=== PATIENT | male | born 1940 | race Two or more races ===

== ENCOUNTER → 2025-03-04 | Outpatient (CLI) | payer MEDICARE, SELFPAY ==
[2025-03-04 08:46] LABS: Basophils % (Auto) 1 % (0-2.5); Eosinophils # (Auto) 0.2 Thou/mm3 (0.0-0.5); Eosinophils % (Auto) 4 % (0-10); Hematocrit 39.4 % (41.0-53.0); Hemoglobin 12.4 g/dL (13.5-16.0); Immature Granulocytes % (Auto) 0 % (0-0); Immature Granulocytes Auto 0.02 Thou/mm3 (0.00-0.00); Lymphocytes # (Auto) 1.1 Thou/mm3 (1.0-4.8); Lymphocytes % (Auto) 20 % (10-50); Mean Corpuscular HGB Conc 31.5 g/dl (31.0-37.0); Mean Corpuscular Hemoglobin 27.6 pg (25.0-35.0); Mean Corpuscular Volume 88 fL (80-100); Monocytes # (Auto) 0.7 Thou/mm3 (0.0-0.8); Monocytes % (Auto) 13 % (0-12); Neutrophils # (Auto) 3.5 Thou/mm3 (1.8-7.7); Neutrophils % (Auto) 62 % (37-80); Nucleated Red Blood Cell % 0 /100 WBC (0); Platelet Count 198 Thou/mm3 (140-440); RDW Standard Deviation 49.1 fL (35.1-43.9); Red Blood Count 4.49 Miln/mm3 (4.50-5.90); White Blood Count 5.5 Thou/mm3 (3.8-10.6)
[2025-03-04 09:07] LABS: Alanine Aminotransferase 29 U/L (10-49); Alkaline Phosphatase 83 U/L (46-116); Anion Gap 8 (7-16); Aspartate Amino Transferase 25 U/L (0-34); BUN/Creatinine Ratio 14 Ratio (12-20); Bilirubin,Total 0.4 mg/dL (0.3-1.2); Blood Urea Nitrogen 14 mg/dL (9-23); Calcium 8.9 mg/dL (8.3-10.6); Calcium (Corrected) 8.9 mg/dL (8.5-10.1); Carbon Dioxide 27.2 mMol/L (20.0-31.0); Cardiac Risk Estimate 2.1 RATIO (4.0-6.7); Chloride 111 mMol/L (98-107); Cholesterol 89 mg/dL (132-200); Free T4 (Free Thyroxine) 0.91 ng/dL (0.89-1.76); Glucose 92 mg/dL (74-106); HDL Cholesterol 42 mg/dL (40-60); LDL Cholesterol,Calculated 33 mg/dL (0-130); Osmolality,Calculated 291 (275-295); Potassium 3.9 mMol/L (3.4-5.1); Sodium 146 mMol/L (136-145); Thyroid Stimulating Hormone 2.71 uIU/mL (0.55-4.78); Triglycerides 69 mg/dL (30-150); eGFR > 60 See Note
[2025-03-04 09:16] LABS: Glucose Estimated Average 117 mg/dL (80-131); Hemoglobin A1C 5.7 % Hgb (4.8-6.0)
== END | disposition home or self-care (01) ==
PROVIDERS: PCP Internal Medicine; Referring Provider Internal Medicine; Visit Provider Internal Medicine
DX: Z00.00 Encounter for general adult medical examination without abnormal findings (principal); E55.9 Vitamin D deficiency, unspecified
CPT/HCPCS: 36415; 80053; 80061; 82306; 83036; 84439; 84443; 85025

== ENCOUNTER 2025-03-23 12:32 | Emergency (ER) | payer OTHER, SELFPAY ==
[2025-03-23 12:48] VITALS: BP 151/86; PULSE 99; RESP 20; TEMP 37.9; O2SAT 95
[2025-03-23 13:00] VITALS: PULSE 90; O2SAT 100; BMI 25.8
--- NOTE | 2025-03-23 13:07 | XR_ITS ---
Examination: Duplex scan of the lower extremity, unilateral left complete Date and time of exam: March 23, 2025 at 1333 hours INDICATIONS: Left leg pain and cramping and edema today Technique: Duplex scan of the extremity veins using B-mode/grayscale imaging and Doppler spectral analysis and color flow Attention is directed to internal echogenicity, compression and augmentation involving these veins, color flow assessment, spectral analysis Findings: Major deep venous structures in the extremity demonstrate normal course and caliber. There is no evidence of deep vein thrombosis. Normal color flow and spectral analysis 5 cm popliteal cyst seen with internal region of the knee Impression: Negative for DVT..
--- NOTE | 2025-03-23 13:17 | PD.EDLOWEX ---
Lower Extremity Injury RME/HPI General Chief Complaint: Extremity Problem,Nontraumatic Stated Complaint: LEFT KNEE PAIN Time Seen by Provider: 03/23/25 12:50 Arrival date/time: 03/23/25 12:32 Limitations: no limitations RME / HPI RME / HPI Narrative: 6y year old male with history of dementia and sundowner's syndrome presented to the ER BIBA accompanied by spouse with a chief complaint of left knee pain and swelling. Per spuse, patient fell asleep in recliner and refused to get up. Patient slept there all night and was unable to ambulate in the morning. Per spouse, the neighbor tried to help get patient up out of the recliner but was unable. Patient is unable to bend left knee due to pain and swelling. Related Data Home Medications ?Medication ?Instructions ?Recorded ?Confirmed fluticasone propionate 50 2 spray intranasal QDAY 03/17/23 03/23/25 mcg/actuation nasal spray,suspension memantine 10 mg tablet 10 mg PO QPM 03/17/23 03/23/25 quetiapine 25 mg tablet mg 03/23/25 rivastigmine 9.5 mg/24 hour See Rx Instructions topical 03/23/25 03/23/25 transdermal patch (Exelon Patch) .COMPLEX rosuvastatin 10 mg tablet mg 03/23/25 Allergies Allergy/AdvReac Type Severity Reaction Status Date / Time No Known Allergies Allergy Verified 03/23/25 13:11 Review of Systems Review of Systems Systems Reviewed: All systems reviewed, normal except as documented ED Exam General Limitations: Present no limitations General appearance: Present alert and in no apparent distress Head Head exam: Present atraumatic Eye Eye exam: Present normal appearance, PERRL and EOMI ENT ENT exam: Present normal exam, normal oropharynx and mucous membranes moist Neck Neck exam: Present normal inspection, full ROM and trachea midline Chest Chest inspection: Present normal inspection and symmetric chest wall rise Respiratory Respiratory exam: Present normal lung sounds bilaterally Cardiovascular Cardiovascular exam: Present regular rate, normal rhythm and normal heart sounds Abdominal Exam Abdominal exam: Present soft and normal bowel sounds Extremities Exam Extremities exam: Present other (pain, spasm, and tenderness along semimembranosus muscle ) Back Exam Back exam: Present normal inspection and full ROM Neurological Exam Neurological exam: Present alert, oriented X3 and CN II-XII intact Psychiatric Psychiatric exam: Present normal affect and normal mood Skin Skin exam: Present warm, dry, intact and normal color Course Quality Measures none Orders Category Date Time Status Home Health Referral Routine Cons 03/23/25 16:02 Active US venous doppler LE LT Stat Exams 03/23/25 13:07 Completed CBC Stat Lab 03/23/25 14:02 Completed CMP [Comprehensive Metabolic Panel] Stat Lab 03/23/25 14:02 Completed Magnesium Stat Lab 03/23/25 14:02 Completed LORazepam [Ativan Inj] Med 03/23/25 13:07 Discontinued 1 mg IVP X1 ONE Vital Signs Vital signs: Vital Signs Temperature 100.2 F 03/23/25 12:48 Pulse Rate 99 03/23/25 12:48 Respiratory Rate 20 03/23/25 12:48 Blood Pressure 151/86 H 03/23/25 12:48 Pulse Oximetry (%) 95 03/23/25 12:48 Oxygen Delivery Method Room Air 03/23/25 12:48 Extremity Injury, Lower MDM Narrative MDM Narrative:: IAnna am scribing for and in the presence of Dr. Allen. Patient data External records reviewed:: [facility] previous records and EMS form Clinical information provided by:: patient and spouse () Social determinants that could affect healthcare access:: mental health (dementia, sundowner's syndrome) Patient has the following chronic illnesses:: dementia, sundowning syndrome, poor balance due to dementia How is presenting disease/condition affected by chronic disease/condition?: exacerbated by Evaluation data The following diagnostics were reviewed and interpreted by me:: lab results and radiology exam(s) Lab and/or radiology exams considered but not ordered:: none Interpretation Summary: Labs, specifically electrolytes are normal. No DVT. His requested HHS, which was submitted. Medications / Prescriptions Medications or Prescriptions considered but not ordered:: none Medication administrations:: Medication Administration History Discontinued Medications Lorazepam (Lorazepam 2 Mg/Ml Vial) 1 mg IVP X1 ONE Stop: 03/23/25 13:08 Last Admin: 03/23/25 14:52 Dose: 1 mg Documented By: BRI see above. Consultations Consultation(s) initiated? (list below): No Diagnosis Extremity Injury, Lower Differential Diagnosis: acute internal derangement of knee and other (muscle strain, muscle tear) Most likely diagnosis given after review of the tests above:: Spasm thigh muscle left, which improved with Tx. Admission Indicated Admission indicated?: not indicated Admission Request Was there a request for admission?: No Disposition Plan Disposition Plan: Discharge Discharge Attestation Discharge Attestation: The patient and all family members were given an opportunity to ask questions and understood the discharge instructions. Discharge instructions specifically effects, indications for sooner follow up or return to the emergency department, and the expected course of current diagnosis. Patient condition: Stable Discharge Plan Plan Patient Disposition: HOME (Self Care) Patient condition on transfer: Stable Prescriptions/Referrals Prescriptions/Med Rec: No Action fluticasone propionate 50 mcg/actuation [place],Suspension 2 spray INTRANASAL QDAY Rx Instructions: administer into each nostril memantine 10 mg Tablet 10 mg PO QPM quetiapine 25 mg tablet Patient Comments: TOME 1/2 - 1 TABLETA POR V A ORAL CADA NOCHE CUANDO SEA NECESARIO rosuvastatin 10 mg tablet Patient Comments: TOME CAREN TABLETA TODOS LOS D FOR 90 DAYS rivastigmine [Exelon Patch] 9.5 mg/24 hour patch 24 hour See Rx Instructions topical .COMPLEX Rx Instructions: topically; Referrals: No Primary/Family,Physician [Primary Care Provider] - In 1 week Problem List Clinical Impression: Muscle spasm Patient/Caregiver Discharge Instructions Print Language: Kyrgyz Stand Alone Forms: [employer] Award Info., Patient Portal Info Letter
[2025-03-23 14:20] LABS: Basophils % (Auto) 0 % (0-2.5); Eosinophils % (Auto) 0 % (0-10); Hematocrit 40.3 % (41.0-53.0); Hemoglobin 12.9 g/dL (13.5-16.0); Immature Granulocytes % (Auto) 0 % (0-0); Immature Granulocytes Auto 0.04 Thou/mm3 (0.00-0.00); Lymphocytes # (Auto) 0.5 Thou/mm3 (1.0-4.8); Lymphocytes % (Auto) 4 % (10-50); Mean Corpuscular Volume 87 fL (80-100); Monocytes % (Auto) 9 % (0-12); Neutrophils # (Auto) 8.9 Thou/mm3 (1.8-7.7); Neutrophils % (Auto) 86 % (37-80); Nucleated Red Blood Cell % 0 /100 WBC (0); Platelet Count 149 Thou/mm3 (140-440); RDW Standard Deviation 48.2 fL (35.1-43.9); Red Blood Count 4.61 Miln/mm3 (4.50-5.90); White Blood Count 10.4 Thou/mm3 (3.8-10.6)
[2025-03-23 14:37] LABS: Alanine Aminotransferase 17 U/L (10-49); Albumin, Serum 4.4 gm/dL (3.4-4.8); Albumin/Globulin Ratio 1.8 (1.2-2.2); Alkaline Phosphatase 82 U/L (46-116); Anion Gap 11 (7-16); Aspartate Amino Transferase 19 U/L (0-34); BUN/Creatinine Ratio 13 Ratio (12-20); Bilirubin,Total 0.8 mg/dL (0.3-1.2); Blood Urea Nitrogen 13 mg/dL (9-23); Calcium 8.9 mg/dL (8.3-10.6); Calcium (Corrected) 8.9 mg/dL (8.5-10.1); Carbon Dioxide 25.4 mMol/L (20.0-31.0); Chloride 107 mMol/L (98-107); Estimated Creatinine Clearance 48.7 mL/min (>60); Globulin 2.4 gm/dL (2.3-3.5); Glucose 114 mg/dL (74-106); Magnesium 1.8 mg/dL (1.6-2.6); Osmolality,Calculated 286 (275-295); Potassium 3.6 mMol/L (3.4-5.1); Sodium 143 mMol/L (136-145); Total Protein 6.8 gm/dL (5.7-8.2); eGFR > 60 See Note
[2025-03-23] MEDS: LORazepam 2 MG/ML VIAL 1 MG IVP (14:52)
[2025-03-23 14:54] VITALS: BP 130/65; PULSE 83; RESP 23; TEMP 37.1; O2SAT 100
[2025-03-23 15:59] VITALS: BP 142/50; PULSE 84; RESP 25; TEMP 37.1; O2SAT 98
--- NOTE | 2025-03-23 16:02 | PC.CC ---
Line Driver communicated with Pt in regard to Home Health request. reported she is unable to attend to currently due to unable to move own leg. Attending doctor was notified and Home Health orders will be submitted.
[2025-03-23 17:42] VITALS: BP 142/50; PULSE 83; RESP 17; TEMP 37.1; O2SAT 94
--- NOTE | 2025-03-24 08:09 | PC.CM ---
pt has [employer] insurance. HH referral sent on [facility]. Awaiting responses. Pending start of care date.
--- NOTE | 2025-03-27 07:23 | PC.CC ---
Addendum entered by Noemy Zepeda RN 03/27/25 08:47: Pt accepted and booked with [facility], SOC will be 03/29 Original Note: [facility] declined referrals sent to other home health agencies
== END 2025-03-23 18:20 | disposition home or self-care (01) ==
PROVIDERS: Emergency Provider Emergency Medicine
DX: M62.838 Other muscle spasm (principal); M79.605 Pain in left leg; R60.0 Localized edema
CPT/HCPCS: 36415; 80053; 83735; 85025; 93971; 99284; J2060

== ENCOUNTER 2025-09-13 11:30 | Inpatient (IN) | payer OTHER, MEDICAID, MEDICARE, SELFPAY ==
[2025-09-13] VITALS (10 sets, daily range): BP systolic 125–138; BP diastolic 66–91; PULSE 73–86; RESP 14–20; TEMP 36.7–38.8; O2SAT 94–99
--- NOTE | 2025-09-13 12:03 | PC.NURSE ---
Pt BIBA from home. Son reports that pt was attempting to go from outside to inside from backyard, stepped up but fell backwards and landed on left hip and knee, but did not hit his back. Pt typically does not use an assistive device for walking. Pt has had dementia for about 5 years, pt has a hard time finding words but communicates with gestures. Feeds himself if food is prepared for him. No previous history of falls.
--- NOTE | 2025-09-13 12:17 | PD.EDFALL ---
ED Fall Injury RME/HPI General Chief Complaint: Fall Stated Complaint: FALL Time Seen by Provider: 09/13/25 12:22 Arrival date/time: 09/13/25 11:30 Limitations: no limitations RME / HPI RME / HPI Narrative: 85 year old male with history of dementia presents to the ED BIBA from home for evaluation following a ground level mechanical fall today. Son states the patient misstepped as he was about to walk up the stairs and fell backwards, landing on his left hip. Reports the patient was complaining of severe pain to the left hip and knee. No head injury or LOC. No other injuries or complaints reported. Related Data Home Medications ?Medication ?Instructions ?Recorded ?Confirmed fluticasone propionate 50 2 spray intranasal QDAY 03/17/23 03/23/25 mcg/actuation nasal spray,suspension memantine 10 mg tablet 10 mg PO BID 03/17/23 09/13/25 quetiapine 25 mg tablet 25 mg PO BID 03/23/25 09/13/25 rivastigmine 9.5 mg/24 hour See Rx Instructions topical 03/23/25 09/13/25 transdermal patch (Exelon Patch) .COMPLEX rosuvastatin 10 mg tablet 10 mg PO DAILY 03/23/25 09/13/25 Allergies Allergy/AdvReac Type Severity Reaction Status Date / Time No Known Allergies Allergy Verified 03/23/25 13:11 Review of Systems Review of Systems Systems Reviewed: All systems reviewed, normal except as documented Past Medical History Past Medical History NEUROLOGIC: Positive Dementia and Alzheimer's Disease CARDIAC: Positive Cardiac Disorders, Coronary Artery Disease, Atherosclerotic Heart Disease, Hypercholesterolemia and Hypertension GASTROINTESTINAL: Positive Gastrointestinal Bleed, Ulcer and Gastroesophageal Reflux Disease GENITOURINARY: Positive Genitourinary Disorders and Benign Prostatic Hyperplasia MUSCULOSKELETAL: Positive Arthritis ENT: Positive Cataracts OTHER HISTORY: Positive Hospitalization and Blood Transfusions Family History FAMILY HISTORY: Positive Family Cancer Surgical History SURGICAL: Positive Cardiac Surgery, Coronary Stent and Cardiac Catheterization Social History SMOKING STATUS: Never smoker ED Exam General Limitations: Present no limitations General appearance: Present alert and in no apparent distress Head Head exam: Present atraumatic, normocephalic and normal inspection Eye Eye exam: Present normal appearance, PERRL and EOMI ENT ENT exam: Present normal exam, normal oropharynx and mucous membranes moist Neck Neck exam: Present normal inspection, full ROM and trachea midline Chest Chest inspection: Present normal inspection and symmetric chest wall rise Respiratory Respiratory exam: Present normal lung sounds bilaterally Cardiovascular Cardiovascular exam: Present regular rate, normal rhythm and normal heart sounds Abdominal Exam Abdominal exam: Present soft and normal bowel sounds Extremities Exam Extremities exam: Present other (Patient grimacing with movement of the left lower extremity, there is an abrasion to the left knee inferior to the patella, no edema, no deformity ) Back Exam Back exam: Present normal inspection and full ROM Neurological Exam Neurological exam: Present alert and CN II-XII intact Psychiatric Psychiatric exam: Present normal affect and normal mood Skin Skin exam: Present warm, dry, intact and normal color Course Quality Measures none Orders Category Date Time Status COVID-19 Screening Questionnaire NOW Care 09/13/25 17:23 Active Manager Massage Department NOW Care 09/13/25 14:45 Active Continuous Pulse Oximetry NOW Care 09/13/25 14:45 Active Decision to Admit X1 Care 09/13/25 17:23 Active EKG (ED ONLY) *Do not use* NOW Care 09/13/25 14:45 Completed Insert IV NOW Care 09/13/25 14:45 Active Consult to Orthopedic Stat Cons 09/13/25 17:23 Ordered Referral - Gas Turbine Assembler Stat Cons 09/13/25 14:[address] pelvis wo con Stat Exams 09/13/25 12:22 Completed EKG (ED Only) Stat Exams 09/13/25 14:45 Draft XR chest 1V portable Stat Exams 09/13/25 14:45 Completed XR knee LT 3V Stat Exams 09/13/25 12:22 Completed CBC Stat Lab 09/13/25 15:23 Completed Comprehensive Metabolic Panel Stat Lab 09/13/25 15:23 Completed Partial Thromboplastin Time Stat Lab 09/13/25 15:23 Completed Prothrombin Time with INR Stat Lab 09/13/25 15:23 Completed Troponin I Stat Lab 09/13/25 15:23 Completed Urinalysis Stat Lab 09/13/25 14:45 Ordered Ketorolac Inj [Toradol Inj] Med 09/13/25 12:25 Discontinued 15 mg IM X1 ONE Sodium Chloride 0.9% 1000 ml [Ns] 1,000 ml Med 09/13/25 14:45 Active IV 100 mls/hr Vital Signs Vital signs: Vital Signs Temperature 98.4 F 09/13/25 11:34 Pulse Rate 76 09/13/25 11:34 Respiratory Rate 18 09/13/25 11:34 Blood Pressure 131/74 H 09/13/25 11:34 Pulse Oximetry (%) 96 09/13/25 11:34 Oxygen Delivery Method Room Air 09/13/25 11:34 Pulse ox is 96% on room air which is adequate. Fall MDM Narrative MDM Narrative:: Flaca Martin, am scribing for and in the presence of Dr. Hdz. Patient data External records reviewed:: [facility] previous records and EMS form Clinical information provided by:: patient, EMS and family Social determinants that could affect healthcare access:: none Patient has the following chronic illnesses:: Dementia How is presenting disease/condition affected by chronic disease/condition?: uneffected by Evaluation data The following diagnostics were reviewed and interpreted by me:: radiology exam(s) Lab and/or radiology exams considered but not ordered:: None Interpretation Summary: Ordering Physician: Jevon Hdz MD Date of Service: 09/13/25 Procedure(s): XR knee LT 3V Accession Number(s): [id number] cc: Harish Taylor MD; Jevon Hdz MD; Deshawn Fowler MD~ Examination: Knee, left, 3 views Technique: Knee AP, lateral, oblique 3 views Date and time of exam: September 13, 2025 1418 hours INDICATIONS: Ground-level fall today with injury of the knee, knee pain. FINDINGS: Severe osteopenia. Advanced left knee tricompartment osteoarthritis. No acute fracture IMPRESSION: No acute fracture Dictated By: Deshawn Fowler MD Signed By: <Electronically signed by Deshawn Fowler MD in OV> 09/13/25 1440 Ordering Physician: Jevon Hdz MD Date of Service: 09/13/25 Procedure(s): CT pelvis wo con Accession Number(s): [id number] cc: Harish Taylor MD; Jevon Hdz MD; Deshawn Fowler MD~ Examination: CT pelvis without intravenous contrast. CT left hip without contrast 2-D sagittal and coronal reconstructions. Date and time of exam: September 13, 2025, 1301 hours INDICATIONS: Patient fell today with injury to the left hip, left hip pain CTDI: vol (mGy) : 8.40 DLP: (mGycm) : 284 Technique: Multiple 3 mm axial sections of the pelvis left hip have been obtained with the 64 slice high resolution scanner. 2-D sagittal and coronal reconstructions. Low dose protocols were performed. One or more of the following dose reduction techniques were used; automated exposure control, adjustment of the mA and/or KV according to patient size, use of iterative reconstruction technique. Findings: Colonic diverticulosis Urinary bladder intact Prostatomegaly, transverse dimension 4.9 cm No pelvic hematoma Fat-containing left inguinal hernia Severe osteopenia Sacral segments iliac bones intact Acute left hip fracture, low femoral neck, probably intertrochanteric, mild angulation at the fracture site IMPRESSION: Acute left hip fracture, left femoral neck partly intertrochanteric Dictated By: Deshawn Fowler MD Signed By: <Electronically signed by Deshawn Fowler MD in OV> 09/13/25 1408 Ordering Physician: Jevon Hdz MD Date of Service: 09/13/25 Procedure(s): XR chest 1V portable Accession Number(s): [id number] cc: Harish Taylor MD; Jevon Hdz MD; Deshawn Fowler MD~ EXAMINATION: AP chest single view TECHNIQUE: AP portable upright chest single view Date and time: September 13, 2025, 1456 hours, comparison March 18, 2023 INDICATIONS: Preop, hip fracture, also fever cough today. FINDINGS: Mild enlargement left ventricle Early pneumonia left base retrocardiac Right lung clear Severe osteopenia IMPRESSION: Early pneumonia left base Dictated By: Deshawn Fowler MD Signed By: <Electronically signed by Deshawn Fowler MD in OV> 09/13/25 1521 Medications / Prescriptions Medications or Prescriptions considered but not ordered:: None Medication administrations:: Medication Administration History Sodium Chloride (Ns) 1,000 mls @ 100 mls/hr IV .Q10H ONE Stop: 09/14/25 00:44 Last Admin: 09/13/25 15:50 Dose: 100 mls/hr Documented By: CS Discontinued Medications Ketorolac Tromethamine (Ketorolac Inj 30 Mg/Ml Vial) 15 mg IM X1 ONE Stop: 09/13/25 12:26 Last Admin: 09/13/25 12:38 Dose: 15 mg Documented By: BY See above Consultations Consultation(s) initiated? (list below): Yes Consultation #1 (Physician, Specialty, Details): I spoke with ortho Dr. Pérez. Discussed patients PMHx, HPI, ED course, exam findings, labs, and radiology results. He agrees to consult. Time: 17:13 Consultation #2 (Physician, Specialty, Details): I spoke with hospitalist team B for admission. Diagnosis Fall Differential Diagnosis: syncope, compression fracture and other (hip fracture, patellar fracture ) Most likely diagnosis given after review of the tests above:: Left hip fracture status post fall dementia Admission Indicated Admission indicated?: indicated Admission Request Was there a request for admission?: Yes Admission Attestation Admission request attestation: Discussed case with [] from Hospitalist service regarding admission. Discussed patients ED course, exam findings, labs, and radiology results. The Hospitalist [agrees,declines] to accept the patient for admission. Disposition Plan Disposition Plan: Admit Discharge Plan Plan Patient Disposition: Admit Acute Care w/in Hospital Prescriptions/Referrals Prescriptions/Med Rec: No Action fluticasone propionate 50 mcg/actuation [place],Suspension 2 spray INTRANASAL QDAY Rx Instructions: administer into each nostril memantine 10 mg Tablet 10 mg PO BID quetiapine 25 mg tablet 25 mg PO BID Patient Comments: TOME 1/2 - 1 TABLETA POR V A ORAL CADA NOCHE CUANDO SEA NECESARIO Rx Instructions: Take 1 tablet by mouth at 3pm and one at night as needed rosuvastatin 10 mg tablet 10 mg PO DAILY Patient Comments: JAQUELIN FABIAN MONICO Villagran FOR 90 DAYS rivastigmine [Exelon Patch] 9.5 mg/24 hour patch 24 hour See Rx Instructions topical .COMPLEX Rx Instructions: topically; Referrals: Harish Taylor MD [Primary Care Provider, Internal Medicine] - In 1 week Problem List Clinical Impression: Fracture of left hip, Status post fall, Dementia Patient/Caregiver Discharge Instructions Print Language: Somali Stand Alone Forms: [employer] Award Info., Patient Portal Info Letter
--- NOTE | 2025-09-13 12:22 | XR_ITS ---
Examination: Knee, left, 3 views Technique: Knee AP, lateral, oblique 3 views Date and time of exam: September 13, 2025 1418 hours INDICATIONS: Ground-level fall today with injury of the knee, knee pain. FINDINGS: Severe osteopenia. Advanced left knee tricompartment osteoarthritis. No acute fracture IMPRESSION: No acute fracture
--- NOTE | 2025-09-13 12:22 | XR_ITS ---
Examination: CT pelvis without intravenous contrast. CT left hip without contrast 2-D sagittal and coronal reconstructions. Date and time of exam: September 13, 2025, 1301 hours INDICATIONS: Patient fell today with injury to the left hip, left hip pain CTDI: vol (mGy) : 8.40 DLP: (mGycm) : 284 Technique: Multiple 3 mm axial sections of the pelvis left hip have been obtained with the 64 slice high resolution scanner. 2-D sagittal and coronal reconstructions. Low dose protocols were performed. One or more of the following dose reduction techniques were used; automated exposure control, adjustment of the mA and/or KV according to patient size, use of iterative reconstruction technique. Findings: Colonic diverticulosis Urinary bladder intact Prostatomegaly, transverse dimension 4.9 cm No pelvic hematoma Fat-containing left inguinal hernia Severe osteopenia Sacral segments iliac bones intact Acute left hip fracture, low femoral neck, probably intertrochanteric, mild angulation at the fracture site IMPRESSION: Acute left hip fracture, left femoral neck partly intertrochanteric
[2025-09-13] MEDS: KETOROLAC INJ 30 MG/ML VIAL 15 MG IM (12:38)
--- NOTE | 2025-09-13 14:45 | EKG_ITS ---
[facility] Test Date: 2025-09-13 Pat Name: ZELDA HUGGINS Department: Room: - Gender: Male Regional Transfer Liaison: : 1940 Requested By: Jevon Strange Order Number: [id number] Reading MD: Jevon Strange Measurements Intervals Isabella Rate: 76 P: 64 PA: 152 QRS: 55 QRSD: 98 T: 52 QT: 364 QTc: 411 Interpretive Statements SINUS RHYTHM WITH OCCASIONAL SUPRAVENTRICULAR PREMATURE COMPLEXES Compared to ECG 03/15/2023 12:04:00 No significant changes /store/S0/[id number].pdf
--- NOTE | 2025-09-13 14:45 | XR_ITS ---
EXAMINATION: AP chest single view TECHNIQUE: AP portable upright chest single view Date and time: September 13, 2025, 1456 hours, comparison March 18, 2023 INDICATIONS: Preop, hip fracture, also fever cough today. FINDINGS: Mild enlargement left ventricle Early pneumonia left base retrocardiac Right lung clear Severe osteopenia IMPRESSION: Early pneumonia left base
[2025-09-13 15:41] LABS: Basophils # (Auto) 0.0 Thou/mm3 (0.0-0.2); Basophils % (Auto) 0 % (0-2.5); Eosinophils # (Auto) 0.0 Thou/mm3 (0.0-0.5); Eosinophils % (Auto) 0 % (0-10); Hematocrit 40.2 % (41.0-53.0); Hemoglobin 13.4 g/dL (13.5-16.0); Immature Granulocytes Auto 0.05 Thou/mm3 (0.00-0.00); Lymphocytes # (Auto) 0.6 Thou/mm3 (1.0-4.8); Lymphocytes % (Auto) 6 % (10-50); Mean Corpuscular HGB Conc 33.3 g/dl (31.0-37.0); Mean Corpuscular Hemoglobin 28.6 pg (25.0-35.0); Mean Corpuscular Volume 86 fL (80-100); Monocytes # (Auto) 1.0 Thou/mm3 (0.0-0.8); Monocytes % (Auto) 10 % (0-12); Neutrophils # (Auto) 8.0 Thou/mm3 (1.8-7.7); Neutrophils % (Auto) 83 % (37-80); Nucleated Red Blood Cell # 0.00 Thou/mm3 (0.00-0.00); Nucleated Red Blood Cell % 0 /100 WBC (0); Platelet Count 146 Thou/mm3 (140-440); RDW Standard Deviation 49.0 fL (35.1-43.9); Red Blood Count 4.68 Miln/mm3 (4.50-5.90); White Blood Count 9.6 Thou/mm3 (3.8-10.6)
[2025-09-13] MEDS: SODIUM CHLORIDE 0.9% 1000 ML 1,000 ML 100 ML IV (15:50)
[2025-09-13 16:03] LABS: INR 1.1 (0.9-1.3); Partial Thromboplastin Time 30.1 Seconds (22.0-36.0); Prothrombin Time 11.8 Seconds (9.0-12.2)
[2025-09-13 16:11] LABS: Alanine Aminotransferase 17 U/L (10-49); Albumin, Serum 4.6 gm/dL (3.4-4.8); Albumin/Globulin Ratio 2.3 (1.2-2.2); Alkaline Phosphatase 85 U/L (46-116); Anion Gap 12 (7-16); Aspartate Amino Transferase 29 U/L (0-34); BUN/Creatinine Ratio 12 Ratio (12-20); Bilirubin,Total 0.8 mg/dL (0.3-1.2); Blood Urea Nitrogen 14 mg/dL (9-23); Calcium 9.1 mg/dL (8.3-10.6); Calcium (Corrected) 9.1 mg/dL (8.5-10.1); Carbon Dioxide 25.9 mMol/L (20.0-31.0); Chloride 104 mMol/L (98-107); Creatinine (Component) 1.2 mg/dL (0.6-1.3); Globulin 2.0 gm/dL (2.3-3.5); Glucose 108 mg/dL (74-106); Osmolality,Calculated 284 (275-295); Potassium 3.8 mMol/L (3.4-5.1); Sodium 142 mMol/L (136-145); Total Protein 6.6 gm/dL (5.7-8.2); Troponin I < 0.020 ng/mL (0.0-0.045); eGFR 59 See Note
--- NOTE | 2025-09-13 17:53 | ECHO_ITS ---
Transthoracic Echo Report Ht (in): 66 Wt (lb): 180 Exam Location: [facility] Status: Emergency Motor Vehicle Licence Examiner: Clay Girard Indications: Procedure Performed: BP: 93 / 66 HR: 71 MEASUREMENTS (Male / Female) Normal Values 2D ECHO LV Diastolic Diameter PLAX 4.2 cm 4.2 - 5.9 / 3.9 - 5.3 cm LV Systolic Diameter PLAX 2.8 cm IVS Diastolic Thickness 0.8 cm 0.6 - 1.0 / 0.6 - 0.9 cm LVPW Diastolic Thickness 1.1 cm 0.6 - 1.0 / 0.6 - 0.9 cm LV Relative Wall Thickness 0.5 LVOT Diameter 1.9 cm LA Volume Index 35.5 cm?/m? 16 - 28 cm?/m? Ascending Aorta Diameter 2.8 cm M-MODE AV Cusp Separation MM 1.1 cm DOPPLER AV Peak Velocity 191.0 cm/s AV Peak Gradient 14.6 mmHg AV Mean Gradient 7.0 mmHg AV Velocity Time Integral 37.6 cm LVOT Peak Velocity 128.0 cm/s LVOT Peak Gradient 6.6 mmHg LVOT Velocity Time Integral 29.4 cm LVOT Cardiac Index 3000.9 cm?/min?m? AV Area Cont Eq vti 2.2 cm? AV Area Cont Eq pk 1.9 cm? MV Area PHT 4.2 cm? Mitral E Point Velocity 55.8 cm/s Mitral A Point Velocity 90.7 cm/s Mitral E to A Ratio 0.6 TR Peak Velocity 167.3 cm/s TR Peak Gradient 11.2 mmHg PV Peak Velocity 102.0 cm/s PV Peak Gradient 4.2 mmHg FINDINGS Left Ventricle Hyperdynamic. Normal left ventricular size, wall thickness, systolic function with no obvious regional wall motion abnormalities. There is grade I diastolic dysfunction of the left ventricle (impaired relaxation pattern). . The ejection fraction is visually estimated at -55 %. Right Ventricle The right ventricle is normal in size and systolic function. Left Atrium The left atrial cavity size is moderately increased. Right Atrium The right atrium is normal by two-dimensional imaging, color flow and Doppler imaging with no structural abnormalities, no thrombus formation present. Atrial Septum The interatrial septum appears normal with no evidence of a shunt. Aorta The aorta is normal by two-dimensional, color flow and Doppler interrogation. Mitral Valve The mitral valve is normal by two-dimensional, color flow and Doppler interrogation. Trace to mild mitral regurgitation. Aortic Valve Mild thickening of the aortic valve leaflets. Aortic valve sclerosis without stenosis.trace to mild aortic valve regurgitation. Tricuspid Valve The tricuspid valve is normal by two-dimensional, color flow and Doppler interrogation. There is trace tricuspid valve regurgitation. Pulmonic Valve The pulmonic valve is not well visualized. Mild pulmonic valve regurgitation. Vessels The pulmonary artery appears normal. The inferior vena cava pulmonary and hepatic veins appear normal. Pericardium The pericardium is normal by two-dimensional imaging. There is no significant pericardial effusion. CONCLUSIONS Indication: Cardiac clearance Hyperdynamic.Normal left ventricular size and function. Approximate ejection fraction is 50-55%. Normal right ventricular size and function. Mildly dilatd LA Aortic valve sclerosis without stenosis Trace -mild mitral, aortic regurgitation and trace tricuspid regurgitation LOW CARDIAC RISK FOR SURGERY Savannah Martin (Electronically Signed) Final Date: 15 September 2025 15:52
--- NOTE | 2025-09-13 17:59 | ESHP_ITS ---
<Statement entered by Kathy Whaley MD - 09/16/25 15:52> I reviewed above note and agree with findings and plans. I have also personally examined the patient with medicine team and went over assessment and plan with medical team including administration internship and resident physician. Documentation for date of: 09/13/25 HPI History of Present Illness Chief complaint: Fall History of present illness: 85-year-old male with past medical history of CAD status post stent placement some 20 years ago on rosuvastatin, dementia on memantine, rivastigmine and Seroquel who presented to the ED on 06/13 after he had a witnessed fall. History taken largely from patient's son, and daughter who are bedside as the patient has dementia and is mostly nonverbal other than some monitoring of words. As per son who witnessed the fall, patient was standing and slowly tripped and fell on his left side without hitting his head. Patient's son attempted to catch him before he fell but was a little too late. Patient has history of CAD status post stent placement 20 years ago and has followed up with cardiology since then with last visit being about 2 weeks ago. As per family bedside patient is ambulatory at home, eats frequent meals but requires assistance with activities of daily living. Per family bedside, patient had a fever a couple nights ago and had recently started on Z-Negro from primary care. Patient's family denies any sick contacts but does state that the patient recently received the flu vaccine. Medical history: As stated above Surgical history: Stent placement as above Allergies: NKDA Home medications: As listed in chart Family history: Noncontributory Social history: Patient lives at home with , ambulates at home but requires assistance with ADLs, no alcohol, tobacco or illicit drug use ROS: Unable to assess as the patient is largely nonverbal In the ED, patient presented slightly hypertensive 131/74, heart rate of 76, respiratory rate 18, afebrile satting 96 on room air. Laboratory findings were largely unremarkable, Knee x-ray was negative for any acute fracture, pelvis CT did show an acute left hip fracture, left femoral neck partly intertrochanteric, colonic diverticulosis, prostatomegaly, fat-containing left inguinal hernia, severe osteopenia. Chest x-ray did show early pneumonia in the left base and EKG was normal sinus rhythm with occasional PVCs. Patient will be admitted for orthopedic consultation and surgery which will be tentatively scheduled for 09/15 pending cardiology clearance. Exam Vital Signs Temp Pulse Resp BP Pulse Ox O2 Del Method 98.1 F 79 20 134/66 H 94 L Room Air 09/13/25 14:59 09/13/25 17:04 09/13/25 17:04 09/13/25 17:04 09/13/25 17:04 09/13/25 17:04 Narrative Exam Physical Exam: GENERAL: Awake, nonverbal, appears stated age HEENT: NC/AT. Moist mucosa. PERRLA/EOMI. CARDIO: Heart RRR, no obvious murmurs, no JVD. PULM: No coughing or visible SOB. Lungs CTA B/L. GI: Abdomen soft, NT/ND, +BS. SKIN/MSK/EXT: Missing 3 digits on left hand since childbirth. No wounds/discoloration/rashes/edema/. +Pedal pulses present B/L. NEURO: Oriented x0 (dementia baseline), moves extremities x 4, no focal neurologic deficits noted. Results: Labs 09/13/25 15:23 09/13/25 15:23 Labs: Short CBC 09/13/25 Range/Units 15:23 WBC 9.6 (3.8-10.6) Thou/mm3 Hgb 13.4 L (13.5-16.0) g/dL Hct 40.2 L (41.0-53.0) % Plt Count 146 (140-440) Thou/mm3 BMP 09/13/25 15:23 Sodium 142 Potassium 3.8 Chloride 104 Carbon Dioxide 25.9 BUN 14 Creatinine 1.2 Glucose 108 H Calcium 9.1 Cardiac Enzymes 09/13/25 Range/Units 15:23 Troponin I < 0.020 (0.0-0.045) ng/mL Liver Function 09/13/25 Range/Units 15:23 Total Bilirubin 0.8 (0.3-1.2) mg/dL AST 29 (0-34) U/L ALT 17 (10-49) U/L Alkaline Phosphatase 85 (46-116) U/L Albumin 4.6 (3.4-4.8) gm/dL Quality Measures Quality Measures none Advance care planning discussed with:: patient Medications Home Medications and Allergies Home Medications ?Medication ?Instructions ?Recorded ?Confirmed ?Type fluticasone propionate 50 2 spray intranasal QDAY 02/2003/23/25 History mcg/actuation nasal spray,suspension memantine 10 mg tablet 10 mg PO BID 03/17/23 History quetiapine 25 mg tablet 25 mg PO BID 03/23/25 History rivastigmine 9.5 mg/24 hour See Rx Instructions topica l 03/23/25 09/13/25 History transdermal patch (Exelon Patch) .COMPLEX rosuvastatin 10 mg tablet 10 mg PO DAILY 03/23/2508/22 History Allergies Allergy/AdvReac Type Severity Reaction Status Date / Time No Known Allergies Allergy Verified 03/23/25 13:11 Visit Medications Acetaminophen (Acetaminophen 325 Mg Tablet) 650 mg PO Q6H PRN PRN Reason: Pain 1-3 and/or Fever >100.1 Stop: 10/13/25 17:49 Hydrocodone Bitart/Acetaminophen (Hydrocodone/Apap 5/325 Tablet) 1 tab PO Q4HR PRN PRN Reason: PAIN SCALE 4-6 (Moderate Stop: 09/18/25 17:49 Dextrose (Dextrose 50%-Water Inj 50 Ml Syringe) 25 ml IV Q15MIN PRN PRN Reason: BG 50-70 responsive npo pt Stop: 10/13/25 17:54 Dextrose (Dextrose 50%-Water Inj 50 Ml Syringe) 50 ml IV Q15MIN PRN PRN Reason: BG <50 OR BG <70 & pt unresponsive Stop: 10/13/25 17:54 Glucagon (Glucagon Inj 1 Mg Vial) 1 mg IM Q15MIN PRN PRN Reason: BG <70, and no IV access Sodium Chloride (Ns) 1,000 mls @ 100 mls/hr IV .Q10H ONE Stop: 09/14/25 00:44 Last Admin: 09/13/25 15:50 Dose: 100 mls/hr Ceftriaxone Sodium 1 gm/ (Sodium Chloride) 50 mls @ 100 mls/hr IV QDAY FRANCESCA Stop: 09/20/25 17:56 Insulin Human Lispro (Insulin Lispro (Admelog) 1 Unit/0.01 Ml Unit) 0 unit SC ACHS [facility]; Protocol Stop: 10/13/25 20:59 Memantine (Memantine Hcl 5 Mg Tablet) 10 mg PO BID [facility] Stop: 10/13/25 20:59 Morphine Sulfate (Morphine Sulf Inj 4 Mg/Ml Vial) 0.5 mg IVP Q4HR PRN PRN Reason: PAIN SCALE 7-10 (Severe Stop: 09/18/25 17:49 Ondansetron HCl (Ondansetron Inj 2 Mg/Ml Inj 2 Ml) 4 mg IVP Q6H PRN; Protocol PRN Reason: NAUSEA OR VOMITING Stop: 10/13/25 17:49 Quetiapine Fumarate (Quetiapine Fumarate 25 Mg Tablet) 25 mg PO BID FRANCESCA Stop: 10/13/25 20:59 Rivastigmine (Rivastigmine 4.6 Mg/24 Hr Patch.Td24 (Non-Formulary)) 9.5 mg TOP QDAY FRANCESCA Stop: 10/14/25 08:59 Sennosides (Senna Tablet) 1 tab PO QDAY PRN; Protocol PRN Reason: constipation Stop: 10/13/25 17:49 Discontinued Medications Ketorolac Tromethamine (Ketorolac Inj 30 Mg/Ml Vial) 15 mg IM X1 ONE Stop: 09/13/25 12:26 Last Admin: 09/13/25 12:38 Dose: 15 mg Assessment & Plan Plan 85-year-old male with past medical history of CAD status post stent placement some 20 years ago on rosuvastatin, dementia on memantine, rivastigmine and Seroquel who presented after he had a witnessed fall will be admitted for orthopedic consultation and surgery which will be tentatively scheduled for 09/15 pending cardiology clearance. #Acute left hip fracture #Elevated fall As stated in HPI above, patient had a fall which resulted in a left acute fracture as seen on CT Knee x-ray was negative for any acute fracture, pelvis CT did show an acute left hip fracture, left femoral neck partly intertrochanteric Plan: Orthopedic surgeon, Dr. Pérez consulted, tentatively scheduled surgery on 09/15 Cardiology consulted for cardiac clearance, echo ordered Multimodal pain management #Left base pneumonia Patient recently started on Z-Negro for fever episode at home with associated rhinitis Patient on room air saturating 94%, WBC of 9.6 Plan: Will start ceftriaxone 1 g daily #Coronary artery disease status post stent placement As noted above, patient had a stent placed some time 20 years ago, last follow- up with cardiology was about 2 weeks ago per family Cardiology consulted for recommendations Will hold off on rosuvastatin at this time but will consider restarting it tomorrow #Hyperglycemic On assessment, patient is hyperglycemic with bedside blood sugar of 209 Last A1c of 5 Plan: Will start sliding scale insulin #Mild normocytic anemia Hemoglobin of 13.4 with MCV of 86 Plan: Will monitor with morning labs #Dementia Patient on memantine 10 mg p.o. twice daily, quetiapine 25 mg p.o. 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 Whaley I have personally seen and examined the patient. I agree with the resident's assessment and plan as documented below. Ankur Hurley, DO PGY-2 Internal Medicine - [facility]
--- NOTE | 2025-09-13 18:01 | XR_ITS ---
EXAMINATION: Left femur 2 views TECHNIQUE: 1. AP lateral left femur 2 views Date and time: September 13, 2025, 1823 hours INDICATIONS: Patient fell today with injury to the femur, femur pain. FINDINGS: Acute fracture left hip, low femoral neck and partly intertrochanteric Angulation at the fracture site Shaft of the femur are intact IMPRESSION: Acute fracture left hip
--- NOTE | 2025-09-13 18:01 | XR_ITS ---
Examination: Left hip AP, lateral, AP pelvis 3 views Technique: Hip AP lateral, AP pelvis, 3 views Exam date and time: September 13, 2025, 1812 hours INDICATIONS: Patient fell today with injury to the left hip, left hip pain. FINDINGS: On this study most of the left hip fracture appears to be intertrochanteric Fracture also involves the left femoral neck Right hip bones of the pelvis intact IMPRESSION: Acute left hip fracture left femoral neck and partly intertrochanteric.
[2025-09-13] MEDS: cefTRIAXone/D5w 1gm IV premix 1 GM/50 ML BAG IV (18:44)
--- NOTE | 2025-09-13 19:51 | PD.ORTHCON ---
HPI Consult details Reason for consultation narrative: left hip fracture History of present illness: Patient is an 85-year-old male with a left hip fracture after ground-level fall. He has a history of Alzheimer's and is taking care of with by his at home who is his medical records technician. She is supposed to use a walker but frequently uses no assistive device. He denies hitting his head. This happened earlier today. He does have a history of a stent that was placed 2 years ago. I discussed with the medical team who wants a cardiology consult prior to proceeding with surgery Past Medical History Past Medical History Comments PMH COMMENT: alzheimers Meds Home Medications and Allergies Home Medications ?Medication ?Instructions ?Recorded ?Confirmed ?Type fluticasone propionate 50 2 spray intranasal QDAY 03/17/23 03/23/25 History mcg/actuation nasal spray,suspension memantine 10 mg tablet 10 mg PO BID 03/17/23 09/13/25 History quetiapine 25 mg tablet 25 mg PO BID 03/23/25 09/13/25 History rivastigmine 9.5 mg/24 hour See Rx Instructions topical 03/23/25 09/13/25 History transdermal patch (Exelon Patch) .COMPLEX rosuvastatin 10 mg tablet 10 mg PO DAILY 03/23/25 09/13/25 History Allergies Allergy/AdvReac Type Severity Reaction Status Date / Time No Known Allergies Allergy Verified 03/23/25 13:11 Exam Vital Signs Temp Pulse Resp BP Pulse Ox O2 Del Method 98.6 F 85 14 137/72 H 99 Room Air 09/13/25 19:13 09/13/25 19:13 09/13/25 19:13 09/13/25 19:13 09/13/25 19:13 09/13/25 19:13 Additional findings Additional findings: Patient is in no acute distress and is cooperative with the examination today. Patient has a normal mood and affect. Breathing is nonlabored. In no respiratory distress. Bilateral extremities were evaluated and demonstrates sensation intact to light touch. Palpable pedal pulses are present. No significant edema is present. Left hip is tender to palpation. Range of motion was not performed. The patient has a positive logroll and is tender to palpation. Leg lengths are slightly shortened and internally rotated on the left Right hip is nontender to palpation with no pain with logroll. FHL, EHL, plantarflexion dorsiflexion are present bilaterally X-rays of the left hip demonstrates a intertrochanteric fracture of the left hip.. It is somewhat displaced Results - Ortho Labs 09/13/25 15:23 09/13/25 15:23 Labs: Short CBC 09/13/25 Range/Units 15:23 WBC 9.6 (3.8-10.6) Thou/mm3 Hgb 13.4 L (13.5-16.0) g/dL Hct 40.2 L (41.0-53.0) % Plt Count 146 (140-440) Thou/mm3 BMP 09/13/25 15:23 Sodium 142 Potassium 3.8 Chloride 104 Carbon Dioxide 25.9 BUN 14 Creatinine 1.2 Glucose 108 H Calcium 9.1 Cardiac Enzymes 09/13/25 Range/Units 15:23 Troponin I < 0.020 (0.0-0.045) ng/mL Liver Function 09/13/25 Range/Units 15:23 Total Bilirubin 0.8 (0.3-1.2) mg/dL AST 29 (0-34) U/L ALT 17 (10-49) U/L Alkaline Phosphatase 85 (46-116) U/L Albumin 4.6 (3.4-4.8) gm/dL Assessment & Plan Problem List (1) Status post fall: Status: Acute (2) Dementia: Status: Acute (3) Fracture of left hip: Status: Acute Assessment and plan: Patient is an 85-year-old male with a left hip intertrochanteric fracture. This happened today. The patient has an extensive cardiac history and thus they would like to get cardiac clearance before proceeding with surgery. I discussed the risks and benefits of surgery with his who makes his decisions for him. We discussed risks of surgery including infection, fracture, nonunion, malunion, damage to nerves and vessels, and medical complications given his extensive history. They would likely perform a cardiac clearance over the weekend and will get him set up for surgery on Tuesday versus Tuesday. - DVT prophylaxis to be held the night before surgery - We will plan for OR when medically stable
--- NOTE | 2025-09-13 20:20 | PC.NURSE ---
PER FAMILY PATIENT AT HOME ON A REGULAR DIET. PATIENT ABLE TO SWALLOW WATER AND PUDDING AT BEDSIDE. NO COUGHING OR GARGLING WITH WATER AND PUDDING ADMINISTRATION.
[2025-09-13] MEDS: MEMANTINE HCL 5 MG TABLET 10 MG PO (20:32)
[2025-09-13] MEDS: ACETAMINOPHEN 325 MG TABLET 650 MG PO (20:37)
[2025-09-13 20:45] LABS: Collection Type, Urine Clean Catch
[2025-09-13 21:12] LABS: Bacteria,Urine Rare; Bilirubin,Urine Negative (Negative); Blood,Urine 1+ (Negative); Clarity,Urine Clear (Clear/Hazy); Color,Urine Yellow (Lt Yel-Yel); Glucose, Urine Negative (Negative); Ketones,Urine Trace (Negative); Leukocyte Esterase,Urine Negative (Negative); Nitrite,Urine Negative (Negative); PH,Urine 5.5 (5.0-7.0); Protein,Urine 1+ (Neg - Trace); RBC,Urine 16 /hpf (0-3); Specific Gravity,Urine 1.027 (1.001-1.035); Squamous Epithelial Cell,Urine 1 /hpf (0-5); Urobilinogen,Urine Negative mg/dL (0.0-1.0); WBC,Urine 11 /hpf (0-5)
[2025-09-14] VITALS (9 sets, daily range): BP systolic 93–147; BP diastolic 45–84; PULSE 65–109; RESP 12–23; TEMP 36.5–37.2; O2SAT 90–100
[2025-09-14] MEDS: HYDROcodone/APAP 5/325 TABLET 1 TAB PO (04:50)
[2025-09-14 05:59] LABS: Basophils # (Auto) 0.0 Thou/mm3 (0.0-0.2); Basophils % (Auto) 0 % (0-2.5); Eosinophils # (Auto) 0.2 Thou/mm3 (0.0-0.5); Eosinophils % (Auto) 4 % (0-10); Hematocrit 40.3 % (41.0-53.0); Hemoglobin 12.6 g/dL (13.5-16.0); Immature Granulocytes Auto 0.02 Thou/mm3 (0.00-0.00); Lymphocytes # (Auto) 0.8 Thou/mm3 (1.0-4.8); Lymphocytes % (Auto) 14 % (10-50); Mean Corpuscular HGB Conc 31.3 g/dl (31.0-37.0); Mean Corpuscular Hemoglobin 28.3 pg (25.0-35.0); Mean Corpuscular Volume 90 fL (80-100); Monocytes # (Auto) 0.7 Thou/mm3 (0.0-0.8); Monocytes % (Auto) 11 % (0-12); Neutrophils # (Auto) 4.4 Thou/mm3 (1.8-7.7); Neutrophils % (Auto) 71 % (37-80); Nucleated Red Blood Cell # 0.00 Thou/mm3 (0.00-0.00); Nucleated Red Blood Cell % 0 /100 WBC (0); Platelet Count 140 Thou/mm3 (140-440); RDW Standard Deviation 51.3 fL (35.1-43.9); Red Blood Count 4.46 Miln/mm3 (4.50-5.90); White Blood Count 6.2 Thou/mm3 (3.8-10.6)
[2025-09-14 06:25] LABS: Alanine Aminotransferase 17 U/L (10-49); Albumin, Serum 4.2 gm/dL (3.4-4.8); Albumin/Globulin Ratio 2.1 (1.2-2.2); Alkaline Phosphatase 80 U/L (46-116); Anion Gap 11 (7-16); Aspartate Amino Transferase 33 U/L (0-34); BUN/Creatinine Ratio 16 Ratio (12-20); Bilirubin,Total 0.7 mg/dL (0.3-1.2); Blood Urea Nitrogen 16 mg/dL (9-23); Calcium 9.0 mg/dL (8.3-10.6); Calcium (Corrected) 9.0 mg/dL (8.5-10.1); Carbon Dioxide 27.8 mMol/L (20.0-31.0); Chloride 105 mMol/L (98-107); Creatinine (Component) 1.0 mg/dL (0.6-1.3); Globulin 2.0 gm/dL (2.3-3.5); Glucose 113 mg/dL (74-106); Magnesium 2.1 mg/dL (1.6-2.6); Osmolality,Calculated 289 (275-295); Phosphorous 2.6 mg/dL (2.4-5.1); Potassium 3.5 mMol/L (3.4-5.1); Sodium 144 mMol/L (136-145); Total Protein 6.2 gm/dL (5.7-8.2); eGFR > 60 See Note
[2025-09-14 06:27] LABS: INR 1.1 (0.9-1.3); Partial Thromboplastin Time 32.1 Seconds (22.0-36.0); Prothrombin Time 11.6 Seconds (9.0-12.2)
[2025-09-14] MEDS: MEMANTINE HCL 5 MG TABLET 10 MG PO ×2 (09:11→20:11)
[2025-09-14 09:52] LABS: B-Type Natriuretic Peptide 31 pg/mL (0-100)
[2025-09-14] MEDS: AZITHROMYCIN INJ 500 MG in SODIUM CHLORIDE 0.9% 250 ML 250 ML 250 MG IV (10:16)
--- NOTE | 2025-09-14 10:49 | ESCONSULT_ITS ---
<Statement entered by Samuel Gongora MD - 09/15/25 15:47> I personally examined the patient evaluated the patient with very well-known to me known associated stent placement of LAD most recent angiogram 2020 negative and cardiac curry quite stable ejection fraction around 50% mild LV dysfunction but doing quite well no heart failure symptoms or angina reviewed hospital fracture with hip appears below cardiac risk for surgery given cardiac clearance further orthopedic surgery. Evaluate the patient agree with treatment and plan recommendation as documented PGY 2 Dr. Tanner PAYTON will monitor the patient closely while in the hospital HPI Data of Consult Requesting Physician: Kathy Whaley MD Admitting Provider: Kathy Whaley MD Attending Provider: Kathy Whaley MD Primary Care Provider: Harish Taylor MD Consult Narrative History of present illness: Helder Donahue is an 85-year-old male with a past medical history of coronary artery disease status post stent placement of LAD in 2005, upper GI bleed, and dementia who presented on 09/13/2025 after witnessed ground-level fall. Given patient's history of dementia, history was obtained from chart review. Per son, who witnessed fall, patient was attempting to walk up flight of stairs but had a misstep and tripped and fell onto his left side without head strike or loss of consciousness. Son tried to break fall but was unable to and subsequently brought patient to the emergency room due to severe hip and knee pain. Imaging in the ED revealed an acute fracture of the left hip, specifically low femoral neck and partial intertrochanteric with angulation at the fracture site but the femoral shaft was intact. Right hip bones of the pelvis were intact. Ortho was consulted and plans to take patient to OR on Tuesday or Tuesday. Patient does require assistance with ADLs. He is supposed to walk with a walker but frequently ambulates without assistance. Cardiology consulted for clearance given history of stent placement. In the ED, vitals showed hemodynamic stability, afebrile, and breathing on room air. Labs showed chronic, normocytic anemia but were otherwise unremarkable. EKG showed sinus rhythm with presence of PACs. CXR showed eaerly pneumonia of left base but may also be due to rotation. Hip images described as above. PMHx: coronary artery disease, osteopenia, dementia, upper GI bleed SHx: no alcohol, cigarette, or illicit drug use; lives at home with ; requires assistance with ADLs but ambulates without assistance PSHx: LAD stent 2005 Allergies: NKDA cc:: cc: Kathy Whaley MD Review of Systems Review of Systems Systems Reviewed: All systems reviewed, normal except as documented Exam Vital Signs Temp Pulse Resp BP Pulse Ox O2 Del Method O2 Flow Rate 98.5 F 68 17 138/45 H 93 L Nasal Cannula 3 09/14/25 08:00 09/14/25 09:13 09/14/25 09:13 09/14/25 08:00 09/14/25 09:13 09/14/25 08:00 09/14/25 09:13 Narrative Exam General: alert, no acute distress, able to speak full sentences HEENT: NC/AT, mucous membranes moist, bilateral sclera anicteric Cardiovascular: regular rate and rhythm, S1/S2 present, no murmurs appreciated Pulmonary: clear to auscultation bilaterally, no rales/rhonchi/wheezes Abdominal: soft, non-tender, non-distended, no rebound/guarding, normal bowel sounds present Musculoskeletal: missing 3 digits of left hand since childbirth; normal ROM, no peripheral edema Skin: warm and dry, intact, no rashes Neuro: no focal deficits Results Labs 09/14/25 05:05 09/14/25 05:05 Labs: Short CBC 09/13/25 09/14/25 Range/Units 15:23 05:05 WBC 9.6 6.2 (3.8-10.6) Thou/mm3 Hgb 13.4 L 12.6 L (13.5-16.0) g/dL Hct 40.2 L 40.3 L (41.0-53.0) % Plt Count 146 140 (140-440) Thou/mm3 BMP 09/13/25 09/14/25 15:23 05:05 Sodium 142 144 Potassium 3.8 3.5 Chloride 104 105 Carbon Dioxide 25.9 27.8 BUN 14 16 Creatinine 1.2 1.0 Glucose 108 H 113 H Calcium 9.1 9.0 Cardiac Enzymes 09/13/25 Range/Units 15:23 Troponin I < 0.020 (0.0-0.045) ng/mL Liver Function 09/13/25 09/14/25 Range/Units 15:23 05:05 Total Bilirubin 0.8 0.7 (0.3-1.2) mg/dL AST 29 33 (0-34) U/L ALT 17 17 (10-49) U/L Alkaline Phosphatase 85 80 (46-116) U/L Albumin 4.6 4.2 (3.4-4.8) gm/dL Urine 09/13/25 Range/Units 20:25 Urine Color Yellow (Lt Yel-Yel) Urine Clarity Clear (Clear/Hazy) Urine pH 5.5 (5.0-7.0) Ur Specific [place] 1.027 (1.001-1.035) Urine Protein 1+ A (Neg - Trace) Urine Glucose (UA) Negative (Negative) Quality Measures Quality Measures none Advance care planning discussed with:: patient Medications Home Medications and Allergies Home Medications ?Medication ?Instructions ?Recorded ?Confirmed ?Type fluticasone propionate 50 2 spray intranasal QDAY 02/2003/23/25 History mcg/actuation nasal spray,suspension memantine 10 mg tablet 10 mg PO BID 03/17/23 History quetiapine 25 mg tablet 25 mg PO BID 03/23/25 History rivastigmine 9.5 mg/24 hour See Rx Instructions topica l 03/23/25 09/13/25 History transdermal patch (Exelon Patch) .COMPLEX rosuvastatin 10 mg tablet 10 mg PO DAILY 03/23/2508/22 History Allergies Allergy/AdvReac Type Severity Reaction Status Date / Time No Known Allergies Allergy Verified 03/23/25 13:11 Visit Medications Acetaminophen (Acetaminophen 325 Mg Tablet) 650 mg PO Q6H PRN PRN Reason: Pain 1-3 and/or Fever >100.1 Stop: 10/13/25 17:49 Last Admin: 09/13/25 20:37 Dose: 650 mg Hydrocodone Bitart/Acetaminophen (Hydrocodone/Apap 5/325 Tablet) 1 tab PO Q4HR PRN PRN Reason: PAIN SCALE 4-6 (Moderate Stop: 09/18/25 17:49 Last Admin: 09/14/25 04:50 Dose: 1 tab Rivastigmine Transdermal System 9 .5 Mg/24 Hrs 0 ea TOP QDAY FRANCESCA Stop: 10/14/25 08:59 Last Admin: 09/14/25 08:55 Dose: Not Given Dextrose (Dextrose 50%-Water Inj 50 Ml Syringe) 25 ml IV Q15MIN PRN PRN Reason: BG 50-70 responsive npo pt Stop: 10/13/25 17:54 Dextrose (Dextrose 50%-Water Inj 50 Ml Syringe) 50 ml IV Q15MIN PRN PRN Reason: BG <50 OR BG <70 & pt unresponsive Stop: 10/13/25 17:54 Glucagon (Glucagon Inj 1 Mg Vial) 1 mg IM Q15MIN PRN PRN Reason: BG <70, and no IV access Ceftriaxone Sodium/Dextrose (Rocephin/D5w 1gm Iv Premix) 1 gm in 50 mls @ 100 mls/hr IV QDAY@1400 [facility] Stop: 09/20/25 17:56 Last Infusion: 09/13/25 19:15 Dose: Infused Azithromycin 500 mg/ Sodium (Chloride) 250 mls @ 250 mls/hr IV QDAY [facility] Stop: 09/17/25 09:17 Last Admin: 09/14/25 10:16 Dose: 250 mls/hr Insulin Human Lispro (Insulin Lispro (Admelog) 1 Unit/0.01 Ml Unit) 0 unit SC [facility]; Protocol Stop: 10/13/25 20:59 Last Admin: 09/14/25 08:55 Dose: Not Given Memantine (Memantine Hcl 5 Mg Tablet) 10 mg PO BID [facility] Stop: 10/13/25 20:59 Last Admin: 09/14/25 09:11 Dose: 10 mg Morphine Sulfate (Morphine Sulf Inj 4 Mg/Ml Vial) 0.5 mg IVP Q4HR PRN PRN Reason: PAIN SCALE 7-10 (Severe Stop: 09/18/25 17:49 Ondansetron HCl (Ondansetron Inj 2 Mg/Ml Inj 2 Ml) 4 mg IVP Q6H PRN; Protocol PRN Reason: NAUSEA OR VOMITING Stop: 10/13/25 17:49 Quetiapine Fumarate (Quetiapine Fumarate 25 Mg Tablet) 25 mg PO BID [facility] Stop: 10/13/25 20:59 Last Admin: 09/14/25 09:11 Dose: 25 mg Sennosides (Senna Tablet) 1 tab PO QDAY PRN; Protocol PRN Reason: constipation Stop: 10/13/25 17:49 Discontinued Medications Sodium Chloride (Ns) 1,000 mls @ 100 mls/hr IV .Q10H ONE Stop: 09/14/25 00:44 Last Admin: 09/13/25 15:50 Dose: 100 mls/hr Ketorolac Tromethamine (Ketorolac Inj 30 Mg/Ml Vial) 15 mg IM X1 ONE Stop: 09/13/25 12:26 Last Admin: 09/13/25 12:38 Dose: 15 mg Rivastigmine (Rivastigmine 4.6 Mg/24 Hr Patch.Td24 (Non-Formulary)) 9.5 mg TOP QDAY FRANCESCA Stop: 10/14/25 08:59 Assessment & Plan Plan Helder Donahue is an 85-year-old male with a past medical history of coronary artery disease status post stent placement of LAD in 2005, upper GI bleed, and dementia who is admitted for left hip fracture and cardiology consulted for clearance. #Acute fracture of left hip #Low femoral neck and partial intertrochanteric fracture with angulation at fracture site Presents after ground-level fall and found to have an acute fracture. Cardiology consulted for clearance for procedure planned on Tuesday vs. Tuesday. Patient follows up on outpatient basis and was last seen 05/2025. At that time patient was doing well and echocardiogram done showed normal-sized chambers, normal-sized LV with EF 51%, diastolic dysfunction noted with mild TR. ? Low cardiac risk and cleared for orthopedic procedure #Coronary artery disease status post stent in LAD (2005) Not on aspirin given history of GI bleed ? Rosuvastatin 10 mg daily #Dementia #Left lower lobe pneumonia #History of GI bleed #Chronic, normocytic anemia ? Continue management per primary team ----- Plan discussed with attending physician Dr. Rolan Payton MD PGY-2 Internal Medicine
--- NOTE | 2025-09-14 10:54 | PC.SS ---
Addendum entered by BERNADETTE Jaimes 09/14/25 16:09: SS update: [employer] submitted SNF referral pending PT note and PASSR. Addendum entered by BERNADETTE Jaimes 09/14/25 16:09: Rounding note: pending surgery either Tuesday or Tuesday. Original Note: Patient is a 85 year old male presenting to the hospital for left hip fracture. [employer] met with patient and patient at bedside role and reason for visit was explained. Patient?s stated that patient lives at home with her. Patients stated that in case patient is unable to make medical decisions on his own she would make them. Patients PCP is Dr. Taylor last appointment was 09/09/25, signal tester is Dr. Gongora last appointment was August 2025, and neurologist is Dr. Artis last appointment was August 2025. Patient?s stated that pharmacy is [facility]. Patients stated that once medically clear she would like patient to d/c to short term rehab as she stated she would like him to receive PT. Patient?s stated she prefers [facility]. [employer] asked patients if he has been diagnosed with a mental health disorder, patients stated he was diagnosed with dementia but denies any other mental health diagnosis. D/c: SNF Decision maker: Jeana Donahue [phone] PCP: Dr. Taylor
--- NOTE | 2025-09-14 12:57 | ESPR_ITS ---
<Statement entered by Kathy Whaley MD - 09/16/25 15:52> I reviewed above note and agree with findings and plans. I have also personally examined the patient with medicine team and went over assessment and plan with medical team including general internist and physician leader and resident physician. Documentation for date of: 09/14/25 Subjective Subjective Interval history: Patient seen and assessed in hospital bed, is awake and eating breakfast by himself. Patient continues to be on supplemental oxygen and requiring 5 L but saturating 92-93% without any signs of respiratory distress. Cardiology has cleared the patient from their standpoint and he can proceed with surgery for the left hip fracture that he sustained from an elevated level fall. Orthopedic surgery tentatively has scheduled surgery for 09/15 or 09/16. Will keep patient n.p.o. and await recommendations from orthopedic surgery. Exam Vital Signs Temp Pulse Resp BP Pulse Ox O2 Del Method O2 Flow Rate 98.5 F 81 22 H 124/61 100 Nasal Cannula 3 09/14/25 11:53 09/14/25 11:53 09/14/25 11:53 09/14/25 11:53 09/14/25 11:53 09/14/25 11:53 09/14/25 11:53 Narrative Exam Physical Exam: GENERAL: Awake, nonverbal, appears stated age HEENT: NC/AT. Moist mucosa. PERRLA/EOMI. CARDIO: Heart RRR, no obvious murmurs, no JVD. PULM: No coughing or visible SOB. Lungs CTA B/L. GI: Abdomen soft, NT/ND, +BS. SKIN/MSK/EXT: Missing 3 digits on left hand since childbirth. No wounds/discoloration/rashes/edema/. +Pedal pulses present B/L. NEURO: Oriented x0 (dementia baseline), moves extremities x 4, no focal neurologic deficits noted. Objective Labs 09/14/25 05:05 09/14/25 05:05 Labs: Laboratory Results - last 24 hr 09/13/25 09/13/25 09/14/25 15:23 20:25 05:05 WBC 9.6 6.2 RBC 4.68 4.46 L Hgb 13.4 L 12.6 L Hct 40.2 L 40.3 L MCV 86 90 MCH 28.6 28.3 MCHC 33.3 31.3 RDW Std Deviation 49.0 H 51.3 H Plt Count 146 140 Neut % (Auto) 83 H 71 Lymph % (Auto) 6 L 14 [place] % (Auto) 10 11 Eos % (Auto) 0 4 Baso % (Auto) 0 0 Neut # (Auto) 8.0 H 4.4 Lymph # (Auto) 0.6 L 0.8 L [place] # (Auto) 1.0 H 0.7 Eos # (Auto) 0.0 0.2 Baso # (Auto) 0.0 0.0 Immature Gran # (Auto) 0.05 H 0.02 H Absolute Nucleated RBC 0.00 0.00 Immature Gran % 1 H 0 Nucleated RBC % 0 0 PT 11.8 11.6 INR 1.1 1.1 APTT 30.1 32.1 Sodium 142 144 Potassium 3.8 3.5 Chloride 104 105 Carbon Dioxide 25.9 27.8 Anion Gap 12 11 BUN 14 16 Creatinine 1.2 1.0 Estim Creat Clear Calc Not Performed. Not Performed. eGFR 59 L > 60 BUN/Creatinine Ratio 12 16 Glucose 108 H 113 H Calculated Osmolality 284 289 Calcium 9.1 9.0 Corrected Calcium 9.1 9.0 Phosphorus 2.6 Magnesium 2.1 Total Bilirubin 0.8 0.7 AST 29 33 ALT 17 17 Alkaline Phosphatase 85 80 Troponin I < 0.020 B-Natriuretic Peptide 31 Total Protein 6.6 6.2 Albumin 4.6 4.2 Globulin 2.0 L 2.0 L Albumin/Globulin Ratio 2.3 H 2.1 Ur Collection Type Clean Catch Urine Color Yellow Urine Clarity Clear Urine pH 5.5 Ur Specific [place] 1.027 Urine Protein 1+ A Urine Glucose (UA) Negative Urine Ketones Trace Urine Blood 1+ A Urine Nitrite Negative Urine Bilirubin Negative Urine Urobilinogen (Auto) Negative Ur Leukocyte Esterase Negative Urine RBC 16 H Urine WBC 11 H Ur Squamous Epith Cells 1 Urine Bacteria Rare Quality Measures Quality Measures none Advance care planning discussed with:: patient Assessment & Plan Assessment Current Active Medications: Generic Name Dose Route Start Last Admin Trade Name Freq PRN Reason Stop Dose Admin Acetaminophen 650 mg 09/13/25 17:50 09/13/25 20:37 Acetaminophen 325 Mg Tablet PO 10/13/25 17:49 650 mg Q6H PRN Administration Pain 1-3 and/or Fever >100.1 Hydrocodone Bitart/Acetaminophen 1 tab 09/13/25 17:50 09/14/25 04:50 Hydrocodone/Apap 5/325 Tablet PO 09/18/25 17:49 1 tab Q4HR PRN Administration PAIN SCALE 4-6 (Moderate Rivastigmine 0 ea 09/14/25 09:00 09/14/25 08:55 Transdermal System 9 TOP 10/14/25 08:59 Not Given .5 Mg/24 Hrs QDAY FRANCESCA Dextrose 25 ml 09/13/25 17:55 Dextrose 50%-Water Inj 50 Ml Syringe IV 10/13/25 17:54 Q15MIN PRN BG 50-70 responsive npo pt Dextrose 50 ml 09/13/25 17:55 Dextrose 50%-Water Inj 50 Ml Syringe IV 10/13/25 17:54 Q15MIN PRN BG <50 OR BG <70 & pt unresponsive Glucagon 1 mg 09/13/25 17:55 Glucagon Inj 1 Mg Vial IM Q15MIN PRN BG <70, and no IV access Ceftriaxone Sodium/Dextrose 1 gm in 50 mls @ 100 mls/hr 09/13/25 17:57 09/13/25 19:15 Rocephin/D5w 1gm Iv Premix IV 09/20/25 17:56 Infused QDAY@1400 FRANCESCA Infusion Azithromycin 500 mg/ Sodium 250 mls @ 250 mls/hr 09/14/25 09:18 09/14/25 10:16 Chloride IV 09/17/25 09:17 250 mls/hr QDAY FRANCESCA Administration Insulin Human Lispro 0 unit 09/13/25 21:00 09/14/25 12:14 Insulin Lispro (Admelog) 1 Unit/0.01 Ml Unit SC 10/13/25 20:59 Not Given ACHS [facility] Protocol Memantine 10 mg 09/13/25 21:00 09/14/25 09:11 Memantine Hcl 5 Mg Tablet PO 10/13/25 20:59 10 mg BID FRANCESCA Administration Morphine Sulfate 0.5 mg 09/13/25 17:50 Morphine Sulf Inj 4 Mg/Ml Vial IVP 09/18/25 17:49 Q4HR PRN PAIN SCALE 7-10 (Severe Ondansetron HCl 4 mg 09/13/25 17:50 Ondansetron Inj 2 Mg/Ml Inj 2 Ml IVP 10/13/25 17:49 Q6H PRN NAUSEA OR VOMITING Protocol Quetiapine Fumarate 25 mg 09/13/25 21:00 09/14/25 09:11 Quetiapine Fumarate 25 Mg Tablet PO 10/13/25 20:59 25 mg BID FRANCESCA Administration Sennosides 1 tab 09/13/25 17:50 Senna Tablet PO 10/13/25 17:49 QDAY PRN constipation Protocol Plan 85-year-old male with past medical history of CAD status post stent placement some 20 years ago on rosuvastatin, dementia on memantine, rivastigmine and Seroquel who presented after he had a witnessed fall will be admitted for orthopedic consultation and surgery which will be tentatively scheduled for 09/15 pending cardiology clearance. #Acute left hip fracture #Elevated fall As stated in HPI above, patient had a fall which resulted in a left acute fracture as seen on CT Knee x-ray was negative for any acute fracture, pelvis CT did show an acute left hip fracture, left femoral neck partly intertrochanteric Cardiology has cleared patient from their standpoint Plan: Orthopedic surgeon, Dr. Pérez consulted, tentatively scheduled surgery on 09/15 N.p.o. after midnight Cardiology consulted for cardiac clearance, echo ordered pending official read Multimodal pain management #Acute hypoxic respiratory failure 12/23 #Left base pneumonia Patient recently started on Z-Negro for fever episode at home with associated rhinitis Patient requiring 5 L of supplemental oxygen and saturating 92-93% but white count down trended to 6.2 Plan: Continue ceftriaxone 1 g daily Added IV azithromycin 500 mg for 3 days Continue supplemental oxygen as needed #Coronary artery disease status post stent placement As noted above, patient had a stent placed some time 20 years ago, last follow- up with cardiology was about 2 weeks ago per family Cardiology consulted for recommendations Will hold off on rosuvastatin at this time but will consider restarting it tomorrow #Hyperglycemic On assessment, patient is hyperglycemic with bedside blood sugar of 209 Last A1c of 5 Plan: Will start sliding scale insulin #Mild normocytic anemia Hemoglobin of 13.4 with MCV of 86 Plan: Will monitor with morning labs Follow-up on morning iron panel and ferritin #Dementia Patient on memantine 10 mg p.o. twice daily, quetiapine 25 mg p.o. 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 Whaley I have personally seen and examined the patient. I agree with the resident's assessment and plan as documented below. Ankur Hurley, DO PGY-2 Internal Medicine - [facility]
[2025-09-14] MEDS: cefTRIAXone/D5w 1gm IV premix 1 GM/50 ML BAG IV (13:42)
[2025-09-14] MEDS: MORPHINE SULF INJ 4 MG/ML VIAL 0.5 MG IVP (14:15)
[2025-09-14] MEDS: RIVASTIGMINE 9.5 MG/24 HR TOP (14:20)
[2025-09-15] VITALS (8 sets, daily range): BP systolic 107–148; BP diastolic 69–89; PULSE 80–98; RESP 18–23; TEMP 36.9–37.4; O2SAT 92–97
[2025-09-15 05:52] LABS: Basophils # (Auto) 0.0 Thou/mm3 (0.0-0.2); Basophils % (Auto) 0 % (0-2.5); Eosinophils # (Auto) 0.2 Thou/mm3 (0.0-0.5); Eosinophils % (Auto) 2 % (0-10); Hematocrit 40.0 % (41.0-53.0); Hemoglobin 12.7 g/dL (13.5-16.0); Immature Granulocytes Auto 0.02 Thou/mm3 (0.00-0.00); Lymphocytes # (Auto) 0.7 Thou/mm3 (1.0-4.8); Lymphocytes % (Auto) 12 % (10-50); Mean Corpuscular HGB Conc 31.8 g/dl (31.0-37.0); Mean Corpuscular Hemoglobin 28.2 pg (25.0-35.0); Mean Corpuscular Volume 89 fL (80-100); Monocytes # (Auto) 0.8 Thou/mm3 (0.0-0.8); Monocytes % (Auto) 13 % (0-12); Neutrophils # (Auto) 4.5 Thou/mm3 (1.8-7.7); Neutrophils % (Auto) 72 % (37-80); Nucleated Red Blood Cell # 0.00 Thou/mm3 (0.00-0.00); Nucleated Red Blood Cell % 0 /100 WBC (0); Platelet Count 142 Thou/mm3 (140-440); RDW Standard Deviation 49.7 fL (35.1-43.9); Red Blood Count 4.50 Miln/mm3 (4.50-5.90); White Blood Count 6.2 Thou/mm3 (3.8-10.6)
[2025-09-15 06:16] LABS: Alanine Aminotransferase 18 U/L (10-49); Albumin, Serum 4.3 gm/dL (3.4-4.8); Albumin/Globulin Ratio 2.2 (1.2-2.2); Alkaline Phosphatase 79 U/L (46-116); Anion Gap 10 (7-16); Aspartate Amino Transferase 30 U/L (0-34); BUN/Creatinine Ratio 12 Ratio (12-20); Bilirubin,Total 0.8 mg/dL (0.3-1.2); Blood Urea Nitrogen 11 mg/dL (9-23); Calcium 8.8 mg/dL (8.3-10.6); Calcium (Corrected) 8.8 mg/dL (8.5-10.1); Carbon Dioxide 29.2 mMol/L (20.0-31.0); Chloride 101 mMol/L (98-107); Creatinine (Component) 0.9 mg/dL (0.6-1.3); Globulin 2.0 gm/dL (2.3-3.5); Glucose 112 mg/dL (74-106); Osmolality,Calculated 279 (275-295); Potassium 3.9 mMol/L (3.4-5.1); Sodium 140 mMol/L (136-145); Total Protein 6.3 gm/dL (5.7-8.2); eGFR > 60 See Note
[2025-09-15 06:42] LABS: Ferritin 109 ng/mL (10.5-307.3); Iron 12 mcg/dL (65-175); Percent Iron Saturation 3 % (20-55); Total Iron Binding Capacity 318 mcg/dL (250-425); Unsaturated Iron Binding 306 (225-295)
[2025-09-15] MEDS: MEMANTINE HCL 5 MG TABLET 10 MG PO ×2 (09:08→21:59)
[2025-09-15] MEDS: RIVASTIGMINE 9.5 MG/24 HR TOP (09:08)
[2025-09-15] MEDS: AZITHROMYCIN INJ 500 MG in SODIUM CHLORIDE 0.9% 250 ML 250 ML 250 MG IV (09:09)
--- NOTE | 2025-09-15 11:07 | ESPR_ITS ---
<Statement entered by Kathy Whaley MD - 09/16/25 15:53> I reviewed above note and agree with findings and plans. I have also personally examined the patient with medicine team and went over assessment and plan with medical team including fashion styling intern and resident physician. Documentation for date of: 09/15/25 Subjective Subjective Interval history: Patient seen and assessed in hospital bed, is awake and eating breakfast by himself. Patient continues to be on supplemental oxygen and requiring 5 L but saturating 92-93% without any signs of respiratory distress. Cardiology has cleared the patient from their standpoint and he can proceed with surgery for the left hip fracture that he sustained from an elevated level fall. Orthopedic surgery has scheduled surgery for 09/16. Will keep patient n.p.o. after midnight Exam Vital Signs Temp Pulse Resp BP Pulse Ox O2 Del Method O2 Flow Rate 98.5 F 85 23 H 148/71 H 94 L Humidified Nasal Cannula 5 09/15/25 08:00 09/15/25 08:00 09/15/25 08:00 09/15/25 08:00 09/15/25 08:00 09/15/25 08:00 09/15/25 08:00 Narrative Exam GENERAL: Awake, nonverbal, appears stated age HEENT: NC/AT. Moist mucosa. PERRLA/EOMI. CARDIO: Heart RRR, no obvious murmurs, no JVD. PULM: No coughing or visible SOB. Lungs CTA B/L. GI: Abdomen soft, NT/ND, +BS. SKIN/MSK/EXT: Missing 3 digits on left hand since childbirth. No wounds/discoloration/rashes/edema/. +Pedal pulses present B/L. NEURO: Oriented x0 (dementia baseline), moves extremities x 4, no focal neurologic deficits noted. Objective Labs 09/15/25 05:25 09/15/25 05:25 Labs: Laboratory Results - last 24 hr 09/15/25 05:25 WBC 6.2 RBC 4.50 Hgb 12.7 L Hct 40.0 L MCV 89 MCH 28.2 MCHC 31.8 RDW Std Deviation 49.7 H Plt Count 142 Neut % (Auto) 72 Lymph % (Auto) 12 Foster % (Auto) 13 H Eos % (Auto) 2 Baso % (Auto) 0 Neut # (Auto) 4.5 Lymph # (Auto) 0.7 L Foster # (Auto) 0.8 Eos # (Auto) 0.2 Baso # (Auto) 0.0 Immature Gran # (Auto) 0.02 H Absolute Nucleated RBC 0.00 Immature Gran % 0 Nucleated RBC % 0 Sodium 140 Potassium 3.9 Chloride 101 Carbon Dioxide 29.2 Anion Gap 10 BUN 11 Creatinine 0.9 Estim Creat Clear Calc Not Performed. eGFR > 60 BUN/Creatinine Ratio 12 Glucose 112 H Calculated Osmolality 279 Calcium 8.8 Corrected Calcium 8.8 Iron 12 L TIBC 318 Iron Saturation 3 L Unsat Iron Binding 306 H Ferritin 109 Total Bilirubin 0.8 AST 30 ALT 18 Alkaline Phosphatase 79 Total Protein 6.3 Albumin 4.3 Globulin 2.0 L Albumin/Globulin Ratio 2.2 Quality Measures Quality Measures none Advance care planning discussed with:: patient Assessment & Plan Assessment Current Active Medications: Generic Name Dose Route Start Last Admin Trade Name Freq PRN Reason Stop Dose Admin Acetaminophen 650 mg 09/13/25 17:50 09/13/25 20:37 Acetaminophen 325 Mg Tablet PO 10/13/25 17:49 650 mg Q6H PRN Administration Pain 1-3 and/or Fever >100.1 Hydrocodone Bitart/Acetaminophen 1 tab 09/13/25 17:50 09/14/25 04:50 Hydrocodone/Apap 5/325 Tablet PO 09/18/25 17:49 1 tab Q4HR PRN Administration PAIN SCALE 4-6 (Moderate Rivastigmine 0 ea 09/14/25 09:00 09/15/25 09:08 Transdermal System 9 TOP 10/14/25 08:59 1 patch .5 Mg/24 Hrs QDAY FRANCESCA Administration Dextrose 25 ml 09/13/25 17:55 Dextrose 50%-Water Inj 50 Ml Syringe IV 10/13/25 17:54 Q15MIN PRN BG 50-70 responsive npo pt Dextrose 50 ml 09/13/25 17:55 Dextrose 50%-Water Inj 50 Ml Syringe IV 10/13/25 17:54 Q15MIN PRN BG <50 OR BG <70 & pt unresponsive Glucagon 1 mg 09/13/25 17:55 Glucagon Inj 1 Mg Vial IM Q15MIN PRN BG <70, and no IV access Ceftriaxone Sodium/Dextrose 1 gm in 50 mls @ 100 mls/hr 09/13/25 17:57 09/14/25 13:42 Rocephin/D5w 1gm Iv Premix IV 09/20/25 17:56 100 mls/hr QDAY@1400 FRANCESCA Administration Azithromycin 500 mg/ Sodium 250 mls @ 250 mls/hr 09/14/25 09:18 09/15/25 09:09 Chloride IV 09/17/25 09:17 250 mls/hr QDAY FRANCESCA Administration Insulin Human Lispro 0 unit 09/13/25 21:00 09/15/25 07:30 Insulin Lispro (Admelog) 1 Unit/0.01 Ml Unit SC 10/13/25 20:59 Not Given ACHS FRANCESCA Protocol Memantine 10 mg 09/13/25 21:00 09/15/25 09:08 Memantine Hcl 5 Mg Tablet PO 10/13/25 20:59 10 mg BID FRANCESCA Administration Morphine Sulfate 0.5 mg 09/13/25 17:50 09/14/25 14:15 Morphine Sulf Inj 4 Mg/Ml Vial IVP 09/18/25 17:49 0.5 mg Q4HR PRN Administration PAIN SCALE 7-10 (Severe Ondansetron HCl 4 mg 09/13/25 17:50 Ondansetron Inj 2 Mg/Ml Inj 2 Ml IVP 10/13/25 17:49 Q6H PRN NAUSEA OR VOMITING Protocol Quetiapine Fumarate 25 mg 09/13/25 21:00 09/15/25 09:09 Quetiapine Fumarate 25 Mg Tablet PO 10/13/25 20:59 25 mg BID FRANCESCA Administration Sennosides 1 tab 09/13/25 17:50 Senna Tablet PO 10/13/25 17:49 QDAY PRN constipation Protocol Plan 85-year-old male with past medical history of CAD status post stent placement some 20 years ago on rosuvastatin, dementia on memantine, rivastigmine and Seroquel who presented after he had a witnessed fall will be admitted for orthopedic consultation and surgery which will be tentatively scheduled for 09/15 pending cardiology clearance. #Acute left hip fracture #Elevated fall As stated in HPI above, patient had a fall which resulted in a left acute fracture as seen on CT Knee x-ray was negative for any acute fracture, pelvis CT did show an acute left hip fracture, left femoral neck partly intertrochanteric Plan: Cardiology has cleared patient from their standpoint Orthopedic surgeon, Dr. Pérez consulted, scheduled surgery on 09/16 N.p.o. after midnight Multimodal pain management #Acute hypoxic respiratory failure 2/ #Left base pneumonia Patient recently started on Z-Negro for fever episode at home with associated rhinitis Patient requiring 5 L of supplemental oxygen and saturating 92-93% but white count down trended to 6.2 Plan: Continue ceftriaxone 1 g daily Added IV azithromycin 500 mg for 3 days Continue supplemental oxygen as needed #Coronary artery disease status post stent placement As noted above, patient had a stent placed some time 20 years ago, last follow- up with cardiology was about 2 weeks ago per family Cardiology consulted for recommendations Will hold off on rosuvastatin at this time but will consider restarting it tomorrow #Hyperglycemic On assessment, patient is hyperglycemic with bedside blood sugar of 209 Last A1c of 5 Plan: Will start sliding scale insulin #Mild normocytic anemia Hemoglobin of 13.4 with MCV of 86 Plan: Will monitor with morning labs Follow-up on morning iron panel and ferritin #Dementia Patient on memantine 10 mg p.o. twice daily, quetiapine 25 mg p.o. 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 Whaley, and senior resident, Dr. Xavi Tabares MD PGY-1
[2025-09-15] MEDS: cefTRIAXone/D5w 1gm IV premix 1 GM/50 ML BAG IV (13:39)
--- NOTE | 2025-09-15 16:20 | ESPR_ITS ---
RE: ZELDA HUGGINS : 1940 DATE OF SERVICE: 09/15/2025 SUBJECTIVE: The patient is an 85-year-old male who is very well known to me, has a long-standing history of coronary artery disease who had previous stent placement of the left anterior descending artery following myocardial infarction back in 2005. Most recent coronary angiogram in 2020 showed stent was widely patent. Unfortunately, he also has significant dementia lately. He has had no cardiac symptoms lately except some dementia. Most recent cardiac angiogram is 2020 negative for angiogram including widely patent stent. Echo was done a year ago showed mild LV dysfunction, EF around 50%. Clinically, he has been doing quite stable. Came to the hospital for fracture of the hip, intertrochanteric fracture after a fall, appears to be stable today, he is now scheduled for surgery tomorrow. Does not complain of any chest pain shortness of breath. OBJECTIVE: Vitals Signs: Remains stable. Blood pressure 130/70. Pulse rate is 87. Lungs: Decreased breath sounds. No rales or rhonchi. Heart: S1, S2 regular. No gallops. Abdomen: Thin and soft. Extremities: No edema. LABORATORY DATA: Hemoglobin and hematocrit are stable, 12.7 hemoglobin. Chemistry panel is also normal. Rest of details unremarkable. Chest x-ray on admission showed mild infiltrate but mostly clear, no heart failure, severe osteopenia. ASSESSMENT: 1. Intertrochanteric fracture of the left hip, left femoral neck. 2. Coronary artery disease, status post stent placement in 2005 and myocardial infarction, stable. 3. Mild left ventricular dysfunction, ejection fraction 50%. 4. Dementia. 5. Hypercholesterolemia. RECOMMENDATION: Based on clinical assessment, the patient is quite stable, appears to be low cardiac risk for surgery and proceed with surgery as scheduled tomorrow. DT: 15:33:35 TT: 16:18:00 Ref: [id number] - TID: [id number]
--- NOTE | 2025-09-15 16:24 | PC.SS ---
Rounding note: Surgery w/ Dr. Pérez scheduled for 09/16. Discharging to [facility] when medically clear. PASRR level 2 pending clearance due to psychotropic medication, Quetiapine Fumarate 25 Mg Tablet. Patient has dementia. [employer] informed by PASQUALE Amezquita spouse is now requesting [facility].
[2025-09-15] MEDS: MORPHINE SULF INJ 4 MG/ML VIAL 0.5 MG IVP (16:57)
[2025-09-16] VITALS (18 sets, daily range): BP systolic 100–143; BP diastolic 61–95; PULSE 100–125; RESP 18–29; TEMP 36.7–37.7; O2SAT 92–100
--- NOTE | 2025-09-16 02:56 | EKG_ITS ---
[facility] Test Date: 2025-09-16 Pat Name: ZELDA HUGGINS Department: Room: S264A Gender: Male [employer]: ER : 1940 Requested By: Kit Ortiz Order Number: [id number] Reading MD: Kit Ortiz Measurements Intervals [place] Rate: 109 P: 36 VT: 145 QRS: 17 QRSD: 81 T: 6 QT: 301 QTc: 406 Interpretive Statements SINUS TACHYCARDIA WITH OCCASIONAL SUPRAVENTRICULAR PREMATURE COMPLEXES POSSIBLE INFERIOR MYOCARDIAL INFARCTION , PROBABLY OLD ABNORMAL RHYTHM ECG Compared to ECG 09/13/2025 14:54:08 Myocardial infarct finding now present Sinus rhythm no longer present /store/S0/[id number]/ecg/[id number].pdf
[2025-09-16 06:10] LABS: Basophils # (Auto) 0.0 Thou/mm3 (0.0-0.2); Basophils % (Auto) 0 % (0-2.5); Eosinophils # (Auto) 0.1 Thou/mm3 (0.0-0.5); Eosinophils % (Auto) 1 % (0-10); Hematocrit 39.5 % (41.0-53.0); Hemoglobin 12.7 g/dL (13.5-16.0); Immature Granulocytes Auto 0.04 Thou/mm3 (0.00-0.00); Lymphocytes # (Auto) 0.6 Thou/mm3 (1.0-4.8); Lymphocytes % (Auto) 8 % (10-50); Mean Corpuscular HGB Conc 32.2 g/dl (31.0-37.0); Mean Corpuscular Hemoglobin 28.4 pg (25.0-35.0); Mean Corpuscular Volume 88 fL (80-100); Monocytes # (Auto) 1.2 Thou/mm3 (0.0-0.8); Monocytes % (Auto) 15 % (0-12); Neutrophils # (Auto) 5.7 Thou/mm3 (1.8-7.7); Neutrophils % (Auto) 75 % (37-80); Nucleated Red Blood Cell # 0.00 Thou/mm3 (0.00-0.00); Nucleated Red Blood Cell % 0 /100 WBC (0); Platelet Count 155 Thou/mm3 (140-440); RDW Standard Deviation 49.5 fL (35.1-43.9); Red Blood Count 4.47 Miln/mm3 (4.50-5.90); White Blood Count 7.6 Thou/mm3 (3.8-10.6)
[2025-09-16 06:21] LABS: INR 1.1 (0.9-1.3); Prothrombin Time 11.2 Seconds (9.0-12.2)
[2025-09-16 06:33] LABS: Alanine Aminotransferase 22 U/L (10-49); Albumin, Serum 4.2 gm/dL (3.4-4.8); Albumin/Globulin Ratio 1.9 (1.2-2.2); Alkaline Phosphatase 80 U/L (46-116); Anion Gap 11 (7-16); Aspartate Amino Transferase 28 U/L (0-34); BUN/Creatinine Ratio 14 Ratio (12-20); Bilirubin,Total 0.9 mg/dL (0.3-1.2); Blood Urea Nitrogen 13 mg/dL (9-23); Calcium 9.0 mg/dL (8.3-10.6); Calcium (Corrected) 9.0 mg/dL (8.5-10.1); Carbon Dioxide 26.4 mMol/L (20.0-31.0); Chloride 101 mMol/L (98-107); Creatinine (Component) 0.9 mg/dL (0.6-1.3); Globulin 2.2 gm/dL (2.3-3.5); Glucose 128 mg/dL (74-106); Osmolality,Calculated 277 (275-295); Potassium 4.1 mMol/L (3.4-5.1); Sodium 138 mMol/L (136-145); Total Protein 6.4 gm/dL (5.7-8.2); eGFR > 60 See Note
[2025-09-16] MEDS: MEMANTINE HCL 5 MG TABLET 10 MG PO (09:58)
[2025-09-16] MEDS: RIVASTIGMINE 9.5 MG/24 HR TOP (09:58)
[2025-09-16] MEDS: AZITHROMYCIN INJ 500 MG in SODIUM CHLORIDE 0.9% 250 ML 250 ML 250 MG IV (09:58)
[2025-09-16] MEDS: ALBUTEROL/IPRATROPIUM (Duoneb) RT SOL 3 ML NEBU INH ×2 (10:02→17:50)
--- NOTE | 2025-09-16 10:31 | ESPR_ITS ---
<Statement entered by Kathy Whaley MD - 09/25/25 07:14> I reviewed above note and agree with findings and plans. I have also personally examined the patient with medicine team and went over assessment and plan with medical team including procurement internship and resident physician. <Statement entered by Vonda Jalloh MD - 09/16/25 14:50> Patient was seen and examined at bedside. No acute overnight events. Patient continues to be on ceftriaxone and azithromycin for community-acquired pneumonia. I did receive treatment as needed. Pending surgery by Ortho. Will follow-up after surgery. Continue symptomatic management with pain medication. After surgery we will resume diet. I personally saw and examined the patient and discussed the assessment and plan with the entire medicine team, including my attending Dr. Whaley, Vonda Jalloh M.D. PGY-3 Disclaimer: Despite multiple revisions, due to the dictation software being used, the document bellow may not be free of grammatical errors including phonetic/typographic errors. However, this does not deter from our commitment to providing health care in the patient's best interest in mind. Documentation for date of: 09/16/25 Subjective Subjective Interval history: Patient planned for orthopedic surgery today 09/16 at 1 PM for his left hip fracture. Patient is on IV ceftriaxone 1 g daily, IV azithromycin 500 mg daily. Patient continues to have pain on his left hip. No Overnight events. Labs reviewed and patient examined at the bedside. Denies chest pain, palpation, SOB, abdominal pain, N/V, fevers or chills. Exam Vital Signs Temp Pulse Resp BP Pulse Ox O2 Del Method O2 Flow Rate 98.6 F 101 H 20 129/90 H 97 Oxy Mask 5 09/16/25 08:00 09/16/25 10:05 09/16/25 10:05 09/16/25 08:00 09/16/25 10:05 09/16/25 08:00 09/16/25 10:05 Narrative Exam General: No acute distress, Oriented x0 (dementia baseline) Eye: Normal conjunctiva, no scleral icterus HENT: Normocephalic, atraumatic, hearing intact to conversation at normal volume, moist oral mucosa Neck: Supple, non-tender, no JVD, no lymphadenopathy Lungs: Non-labored respirations, symmetric chest rise, Clear to auscultate bilaterally, No wheezing, rhonchi, crackles Heart: Peripheral pulses intact bilaterally, Regular Rate and Rhythm. Abdomen: Soft, non-tender, non-distended, no palpable masses Musculoskeletal: No cyanosis or edema, No visible joint swelling, Missing 3 digits on left hand since childbirth. Skin: Skin is warm, dry, no rashes or lesions. Psychiatric: Cooperative, appropriate mood and affect Neuro: Cranial nerves II-XII grossly intact. Sensations intact to light touch. Objective Labs 09/16/25 05:23 09/16/25 05:23 Labs: Laboratory Results - last 24 hr 09/16/25 05:23 WBC 7.6 RBC 4.47 L Hgb 12.7 L Hct 39.5 L MCV 88 MCH 28.4 MCHC 32.2 RDW Std Deviation 49.5 H Plt Count 155 Neut % (Auto) 75 Lymph % (Auto) 8 L Forrest % (Auto) 15 H Eos % (Auto) 1 Baso % (Auto) 0 Neut # (Auto) 5.7 Lymph # (Auto) 0.6 L Forrest # (Auto) 1.2 H Eos # (Auto) 0.1 Baso # (Auto) 0.0 Immature Gran # (Auto) 0.04 H Absolute Nucleated RBC 0.00 Immature Gran % 1 H Nucleated RBC % 0 PT 11.2 INR 1.1 Sodium 138 Potassium 4.1 Chloride 101 Carbon Dioxide 26.4 Anion Gap 11 BUN 13 Creatinine 0.9 Estim Creat Clear Calc Not Performed. eGFR > 60 BUN/Creatinine Ratio 14 Glucose 128 H Calculated Osmolality 277 Calcium 9.0 Corrected Calcium 9.0 Total Bilirubin 0.9 AST 28 ALT 22 Alkaline Phosphatase 80 Total Protein 6.4 Albumin 4.2 Globulin 2.2 L Albumin/Globulin Ratio 1.9 Quality Measures Quality Measures none Advance care planning discussed with:: patient and other Assessment & Plan Assessment Current Active Medications: Generic Name Dose Route Start Last Admin Trade Name Freq PRN Reason Stop Dose Admin Acetaminophen 650 mg 09/13/25 17:50 09/13/25 20:37 Acetaminophen 325 Mg Tablet PO 10/13/25 17:49 650 mg Q6H PRN Administration Pain 1-3 and/or Fever >100.1 Hydrocodone Bitart/Acetaminophen 1 tab 09/13/25 17:50 09/14/25 04:50 Hydrocodone/Apap 5/325 Tablet PO 09/18/25 17:49 1 tab Q4HR PRN Administration PAIN SCALE 4-6 (Moderate Albuterol/Ipratropium 3 ml 09/16/25 08:46 09/16/25 10:02 Albuterol/Ipratropium (Duoneb) Rt Katey 3 Ml Nebu INH 10/16/25 09:59 3 ml Q2HR PRN Administration SHORTNESS OF BREATH Rivastigmine 0 ea 09/14/25 09:00 09/16/25 09:58 Transdermal System 9 TOP 10/14/25 08:59 1 patch .5 Mg/24 Hrs QDAY FRANCESCA Administration Dextrose 25 ml 09/13/25 17:55 Dextrose 50%-Water Inj 50 Ml Syringe IV 10/13/25 17:54 Q15MIN PRN BG 50-70 responsive npo pt Dextrose 50 ml 09/13/25 17:55 Dextrose 50%-Water Inj 50 Ml Syringe IV 10/13/25 17:54 Q15MIN PRN BG <50 OR BG <70 & pt unresponsive Glucagon 1 mg 09/13/25 17:55 Glucagon Inj 1 Mg Vial IM Q15MIN PRN BG <70, and no IV access Ceftriaxone Sodium/Dextrose 1 gm in 50 mls @ 100 mls/hr 09/13/25 17:57 09/15/25 13:39 Rocephin/D5w 1gm Iv Premix IV 09/20/25 17:56 100 mls/hr QDAY@1400 FRANCESCA Administration Azithromycin 500 mg/ Sodium 250 mls @ 250 mls/hr 09/14/25 09:18 09/16/25 09:58 Chloride IV 09/17/25 09:17 250 mls/hr QDAY FRANCESCA Administration Insulin Human Lispro 0 unit 09/13/25 21:00 09/16/25 08:24 Insulin Lispro (Admelog) 1 Unit/0.01 Ml Unit SC 10/13/25 20:59 Not Given ACHS [facility] Protocol Memantine 10 mg 09/13/25 21:00 09/16/25 09:58 Memantine Hcl 5 Mg Tablet PO 10/13/25 20:59 10 mg BID FRANCESCA Administration Morphine Sulfate 0.5 mg 09/13/25 17:50 09/15/25 16:57 Morphine Sulf Inj 4 Mg/Ml Vial IVP 09/18/25 17:49 0.5 mg Q4HR PRN Administration PAIN SCALE 7-10 (Severe Ondansetron HCl 4 mg 09/13/25 17:50 Ondansetron Inj 2 Mg/Ml Inj 2 Ml IVP 10/13/25 17:49 Q6H PRN NAUSEA OR VOMITING Protocol Quetiapine Fumarate 25 mg 09/13/25 21:00 09/16/25 09:58 Quetiapine Fumarate 25 Mg Tablet PO 10/13/25 20:59 25 mg BID FRANCESCA Administration Sennosides 1 tab 09/13/25 17:50 Senna Tablet PO 10/13/25 17:49 QDAY PRN constipation Protocol Plan 85-year-old male with past medical history of CAD status post stent placement some 20 years ago on rosuvastatin, dementia on memantine, rivastigmine and Seroquel who presented after he had a witnessed fall will be admitted for orthopedic consultation and surgery which will be tentatively scheduled for 09/15 pending cardiology clearance. #Acute left hip fracture #Elevated fall -Femur XR (09/13/2025): Acute fracture left hip, low femoral neck and partly intertrochanteric. Angulation at the fracture site. Shaft of the femur are intact -Hip/Pelvis XR (09/13/2025): Acute left hip fracture left femoral neck and partly intertrochanteric. Right hip bones of the pelvis intact -Pelvis CT (09/13/2025): Acute left hip fracture, left femoral neck partly intertrochanteric, mild angulation at the fracture site -Knee XR, left (09/13/2025): No acute fracture -ECHO (09/13/2025): Hyperdynamic.Normal left ventricular size and function. Approximate ejection fraction is 50-55%. Normal right ventricular size and function. Mildly dilatd LA. Aortic valve sclerosis without stenosis. Trace -mild mitral, aortic regurgitation and trace tricuspid regurgitation. LOW CARDIAC RISK FOR SURGERY Plan: Cardiology has cleared patient from their standpoint Orthopedic surgeon, Dr. Pérez consulted, scheduled surgery on 09/16 at 1pm N.p.o. after midnight Multimodal pain management #Acute hypoxic respiratory failure 2/ #Left base pneumonia Patient recently started on Z-Negro for fever episode at home with associated rhinitis Patient requiring 5 L of supplemental oxygen and saturating 92-93% but white count down trended to 6.2 Plan: Continue ceftriaxone 1 g daily Added IV azithromycin 500 mg for 3 days Continue supplemental oxygen as needed #Coronary artery disease status post stent placement As noted above, patient had a stent placed some time 20 years ago, last follow- up with cardiology was about 2 weeks ago per family Cardiology consulted for recommendations Will hold off on rosuvastatin at this time but will consider restarting it tomorrow #Hyperglycemic On assessment, patient is hyperglycemic with bedside blood sugar of 209 Last A1c of 5 Plan: Will start sliding scale insulin #Mild normocytic anemia Hemoglobin of 13.4 with MCV of 86 Plan: Will monitor with morning labs Follow-up on morning iron panel and ferritin #Dementia Patient on memantine 10 mg p.o. twice daily, quetiapine 25 mg p.o. 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 Whaley and Dr. Jalloh (PGY-3) Dr. Stone (PGY-1) - Internal medicine resident
--- NOTE | 2025-09-16 11:45 | PC.SS ---
Follow up completed with [facility] staff, Ruel Heredia. [facility] to be be closed. On line closure is pending.
--- NOTE | 2025-09-16 12:18 | ESPR_ITS ---
<Statement entered by Samuel Gongora MD - 09/21/25 12:09> I personally evaluated and examined this patient who is well-known to me alongside history of CAD stent placement underwent surgery for fracture of the hip recovering well patient has some dementia patient did have some tachycardia but improving not have any chest pain shortness breath evaluated patient with resident physician Dr. Tanner PAYTON PGY2 agree with the treatment plan recommendation as documented. Documentation for date of: 09/16/25 Subjective Subjective Interval history: No acute overnight events. Seen and examined at bedside and patient resting comfortably in bed. Per who was also at bedside, patient asked if again pain with movement but managed well with current pain regimen. Plans to go to OR at around 1 PM. Heart rate in low 100s but EKG obtained and showed sinus rhythm, suspect to be due to pain. Oxygen requirements increasing but suspect to be due to secretions versus worsening pneumonia. Exam Vital Signs Temp Pulse Resp BP Pulse Ox O2 Del Method O2 Flow Rate 98.6 F 101 H 20 129/90 H 97 Oxy Mask 5 09/16/25 08:00 09/16/25 10:05 09/16/25 10:05 09/16/25 08:00 09/16/25 10:05 09/16/25 08:00 09/16/25 10:05 Narrative Exam General: alert, no acute distress, able to speak full sentences HEENT: NC/AT, mucous membranes moist, bilateral sclera anicteric Cardiovascular: tachycardic, regular rhythm, S1/S2 present, no murmurs appreciated Pulmonary: coarse lung sounds bilaterally Abdominal: soft, non-tender, non-distended, no rebound/guarding, normal bowel sounds present Musculoskeletal: missing 3 digits of left hand since childbirth; normal ROM, no peripheral edema Skin: warm and dry, intact, no rashes Neuro: no focal deficits Objective Labs 09/16/25 05:23 09/16/25 05:23 Labs: Laboratory Results - last 24 hr 09/16/25 05:23 WBC 7.6 RBC 4.47 L Hgb 12.7 L Hct 39.5 L MCV 88 MCH 28.4 MCHC 32.2 RDW Std Deviation 49.5 H Plt Count 155 Neut % (Auto) 75 Lymph % (Auto) 8 L Gilliam % (Auto) 15 H Eos % (Auto) 1 Baso % (Auto) 0 Neut # (Auto) 5.7 Lymph # (Auto) 0.6 L Gilliam # (Auto) 1.2 H Eos # (Auto) 0.1 Baso # (Auto) 0.0 Immature Gran # (Auto) 0.04 H Absolute Nucleated RBC 0.00 Immature Gran % 1 H Nucleated RBC % 0 PT 11.2 INR 1.1 Sodium 138 Potassium 4.1 Chloride 101 Carbon Dioxide 26.4 Anion Gap 11 BUN 13 Creatinine 0.9 Estim Creat Clear Calc Not Performed. eGFR > 60 BUN/Creatinine Ratio 14 Glucose 128 H Calculated Osmolality 277 Calcium 9.0 Corrected Calcium 9.0 Total Bilirubin 0.9 AST 28 ALT 22 Alkaline Phosphatase 80 Total Protein 6.4 Albumin 4.2 Globulin 2.2 L Albumin/Globulin Ratio 1.9 Quality Measures Quality Measures none Advance care planning discussed with:: patient and spouse Assessment & Plan Assessment Current Active Medications: Generic Name Dose Route Start Last Admin Trade Name Freq PRN Reason Stop Dose Admin Acetaminophen 650 mg 09/13/25 17:50 09/13/25 20:37 Acetaminophen 325 Mg Tablet PO 10/13/25 17:49 650 mg Q6H PRN Administration Pain 1-3 and/or Fever >100.1 Hydrocodone Bitart/Acetaminophen 1 tab 09/13/25 17:50 09/14/25 04:50 Hydrocodone/Apap 5/325 Tablet PO 09/18/25 17:49 1 tab Q4HR PRN Administration PAIN SCALE 4-6 (Moderate Albuterol/Ipratropium 3 ml 09/16/25 08:46 09/16/25 10:02 Albuterol/Ipratropium (Duoneb) Rt Katey 3 Ml Nebu INH 10/16/25 09:59 3 ml Q2HR PRN Administration SHORTNESS OF BREATH Rivastigmine 0 ea 09/14/25 09:00 09/16/25 09:58 Transdermal System 9 TOP 10/14/25 08:59 1 patch .5 Mg/24 Hrs QDAY FRANCESCA Administration Dextrose 25 ml 09/13/25 17:55 Dextrose 50%-Water Inj 50 Ml Syringe IV 10/13/25 17:54 Q15MIN PRN BG 50-70 responsive npo pt Dextrose 50 ml 09/13/25 17:55 Dextrose 50%-Water Inj 50 Ml Syringe IV 10/13/25 17:54 Q15MIN PRN BG <50 OR BG <70 & pt unresponsive Glucagon 1 mg 09/13/25 17:55 Glucagon Inj 1 Mg Vial IM Q15MIN PRN BG <70, and no IV access Ceftriaxone Sodium/Dextrose 1 gm in 50 mls @ 100 mls/hr 09/13/25 17:57 09/15/25 13:39 Rocephin/D5w 1gm Iv Premix IV 09/20/25 17:56 100 mls/hr QDAY@1400 FRANCESCA Administration Azithromycin 500 mg/ Sodium 250 mls @ 250 mls/hr 09/14/25 09:18 09/16/25 09:58 Chloride IV 09/17/25 09:17 250 mls/hr QDAY FRANCESCA Administration Insulin Human Lispro 0 unit 09/13/25 21:00 09/16/25 11:53 Insulin Lispro (Admelog) 1 Unit/0.01 Ml Unit SC 10/13/25 20:59 Not Given ACHS FRANCESCA Protocol Memantine 10 mg 09/13/25 21:00 09/16/25 09:58 Memantine Hcl 5 Mg Tablet PO 10/13/25 20:59 10 mg BID FRANCESCA Administration Morphine Sulfate 0.5 mg 09/13/25 17:50 09/15/25 16:57 Morphine Sulf Inj 4 Mg/Ml Vial IVP 09/18/25 17:49 0.5 mg Q4HR PRN Administration PAIN SCALE 7-10 (Severe Ondansetron HCl 4 mg 09/13/25 17:50 Ondansetron Inj 2 Mg/Ml Inj 2 Ml IVP 10/13/25 17:49 Q6H PRN NAUSEA OR VOMITING Protocol Quetiapine Fumarate 25 mg 09/13/25 21:00 09/16/25 09:58 Quetiapine Fumarate 25 Mg Tablet PO 10/13/25 20:59 25 mg BID FRANCESCA Administration Sennosides 1 tab 09/13/25 17:50 Senna Tablet PO 10/13/25 17:49 QDAY PRN constipation Protocol Plan Helder Donahue is an 85-year-old male with a past medical history of coronary artery disease status post stent placement of LAD in 2006, upper GI bleed, and dementia who is admitted for left hip fracture and cardiology consulted for clearance. #Acute fracture of left hip #Low femoral neck and partial intertrochanteric fracture with angulation at fracture site Presents after ground-level fall and found to have an acute fracture. Cardiology consulted for clearance for procedure planned on Tuesday vs. Tuesday. Patient follows up on outpatient basis and was last seen 05/2025. At that time patient was doing well and echocardiogram done showed normal-sized chambers, normal-sized LV with EF 51%, diastolic dysfunction noted with mild TR. ? Low cardiac risk and cleared for orthopedic procedure #Sinus tachycardia Telemetry reviewed and EKG obtained and showing sinus tachycardia. Suspect to be due to pain at this time and planned for OR today. ? Continue to monitor on telemetry #Coronary artery disease status post stent in LAD (2005) Not on aspirin given history of GI bleed ? Rosuvastatin 10 mg daily #Dementia #Left lower lobe pneumonia #History of GI bleed #Chronic, normocytic anemia ? Continue management per primary team ----- Plan discussed with attending physician Dr. Rolan Payton MD PGY-2 Internal Medicine
--- NOTE | 2025-09-16 14:00 | XR_ITS ---
EXAMINATION: Left hip 5 views Fluoroscopy Acute left hip fracture September 13, 2025, operative reduction internal fixation today Date and time: September 16, 2025, 1512 hours Technique and findings: 5. Spot fluoroscopic AP lateral films left hip Operative reduction internal fixation left hip fracture with anatomic alignment Orthopedic hardware in satisfactory position Fluoroscopy 1.59 minutes radiation dose 14.2 mGy IMPRESSION: Operative reduction internal fixation left hip fracture with anatomic alignment
--- NOTE | 2025-09-16 15:21 | PD.SUROPNT ---
Date of Procedure 09/16/25 Pre Op Diagnosis left hip basicervical fracture Post Op Diagnosis left hip basicervical fracture Procedure left hipo cephalomedullary nail Findings basicervical hip fracture Procedure Description Indications Patient is a pleasant 85 yo male with a ground level fall. We discussed operative treatment with a cephalomedullary nail given the intertrochanteric fracture. We Discussed nonoperative and operative options. He understands the risk of surgery, including infection, nonunion, malunion, hardware failure, and medical complications including , and would like to proceed with surgery Procedure in detail The patient was brought to the Kaycee table and was prepped and draped in the usual sterile fashion. We first obtained prereduction fluoroscopy films. We reduced it with traction and gentle internal rotation. Once an adequate reduction was performed, the patient was prepped and draped in usual sterile fashion. A surgical timeout was then performed. A trochanteric starting point was found and an entry wire was inserted followed by an opening reamer. We then made the lag screw incision and used a bone hook and ensured that we were on bone to reduce the fracture. We then inserted a 10 mm 125 degrees short gamma nail into the femur and ensured that it was reduced based on fluoro. We then inserted a wire into the 125 degree jig and ensured that we were in a center center position on both the AP and lateral films. We then used a drill and inserted a screw after measuring. We applied compression with the compression nut. We ensured on both AP and lateral fluoroscopy views that we were in good position. We then used the static interlock screw. The patient was closed in the usual sterile fashion with Vicryl and Monocryl. Patient is to be weightbearing as tolerated Plan: WBAT Resume dvt ppx PT/OT Implants Implants comments: obinna intermediate nail, 1 lag screw and 1 distal interlock screw Pathology / specimen None Pathology comment: none Estimated Blood Loss 100 Condition Stable Disposition floor Surgeon Benjie Pérez MD Surgical Staff Operation Date: 09/16/25 17:15 Case Staff Anesthesiologist: Ney Fraga RN First Assistant: Sofya Quispe
--- NOTE | 2025-09-16 15:40 | XR_ITS ---
EXAMINATION: Left femur 2 views TECHNIQUE: AP lateral left femur 2 views Date and time: September 16, 2025, 1642 hours INDICATIONS: Postop today reduction internal fixation left hip fracture Date and time: September 16, 2025, 164 hours, comparison September 13, 2025 FINDINGS: Postop reduction internal fixation left hip fracture with satisfactory alignment Orthopedic hardware satisfactory position Moderate narrowing hip joint Prominent osteopenia IMPRESSION: Postop reduction internal fixation left hip fracture with satisfactory alignment
--- NOTE | 2025-09-16 15:40 | XR_ITS ---
Examination: Left hip AP, lateral, AP pelvis 3 views Technique: Hip AP lateral, AP pelvis, 3 views Exam date and time: September 16, 2025, 1636 hours INDICATIONS: Postop reduction internal fixation left hip fracture FINDINGS: Postop reduction internal fixation left hip fracture. Satisfactory alignment Orthopedic hardware satisfactory position The lateral view is suboptimal Right hip bones of the pelvis intact IMPRESSION: Postop reduction internal fixation left hip fracture with satisfactory alignment.
--- NOTE | 2025-09-16 16:40 | SUR.PHASEI ---
1548: Pt received in [facility] via hospital bed with trapeze. Report from Devin GIORDANO and Dr. Tucker. Pt unresponsive. Report pt has advanced dementia and this was normal for him. Resp with coarse rhonchi with LLL pneumonia. Pt received fentanyl and propafal for surgical procedure. VS stable. Dressing to left lateral hip dry, clean, intact. 1620: Pt has been sleeping with same lung sounds. Occasional productive cough. VS stable. Dressing remains dry, clean, intact, 1640: Radiology here to take ordered x-rays.
--- NOTE | 2025-09-16 17:04 | SUR.PHASEI ---
1700: X-rays complete. Six views taken. Report to Telemetry. 1704: Pt transferred to 264 in stable condition.
[2025-09-16] MEDS: cefTRIAXone/D5w 1gm IV premix 1 GM/50 ML BAG IV (17:38)
--- NOTE | 2025-09-16 21:05 | PC.RT ---
pt nasopharangeal suctioned at this time w/ scant thick peres secretions extracted.
[2025-09-16 22:27] LABS: Base Excess 0 (-3-3); HCO3 27 mEq/L (20-26); Inspired O2, VO2 Liters 10 L/min; O2 Saturation 88 % (91-98); PCO2 50 mmHg (32.0-48.0); pH, Arterial 7.34 (7.35-7.45)
[2025-09-16 22:28] LABS: Allen Test Performed/OK; Puncture Site Right Radial
[2025-09-16 22:29] LABS: PO2 55 mmHg (83-108)
--- NOTE | 2025-09-16 22:35 | XR_ITS ---
EXAMINATION: AP chest single view TECHNIQUE: 1. AP portable upright chest single view Date and time: September 16, 2025, 2313 hours, comparison September 13, 2025 INDICATIONS: Shortness of breath today FINDINGS: Mild prominence cardiac contour Prominent vascular congestion Suspicious for early pneumonia at the lung bases Prominent osteopenia IMPRESSION: Suspicious for early heart failure Bibasilar pneumonia
[2025-09-17] VITALS (10 sets, daily range): BP systolic 103–119; BP diastolic 61–77; PULSE 77–108; RESP 13–22; TEMP 36.1–37.3; O2SAT 93–100; BMI 28.2; BMI 12.0
[2025-09-17 06:01] LABS: Basophils # (Auto) 0.0 Thou/mm3 (0.0-0.2); Basophils % (Auto) 0 % (0-2.5); Eosinophils # (Auto) 0.0 Thou/mm3 (0.0-0.5); Eosinophils % (Auto) 0 % (0-10); Hematocrit 40.4 % (41.0-53.0); Hemoglobin 13.1 g/dL (13.5-16.0); Immature Granulocytes Auto 0.04 Thou/mm3 (0.00-0.00); Lymphocytes # (Auto) 0.6 Thou/mm3 (1.0-4.8); Lymphocytes % (Auto) 6 % (10-50); Mean Corpuscular HGB Conc 32.4 g/dl (31.0-37.0); Mean Corpuscular Hemoglobin 28.4 pg (25.0-35.0); Mean Corpuscular Volume 87 fL (80-100); Monocytes # (Auto) 1.0 Thou/mm3 (0.0-0.8); Monocytes % (Auto) 11 % (0-12); Neutrophils # (Auto) 7.5 Thou/mm3 (1.8-7.7); Neutrophils % (Auto) 83 % (37-80); Nucleated Red Blood Cell # 0.00 Thou/mm3 (0.00-0.00); Nucleated Red Blood Cell % 0 /100 WBC (0); Platelet Count 146 Thou/mm3 (140-440); RDW Standard Deviation 48.4 fL (35.1-43.9); Red Blood Count 4.62 Miln/mm3 (4.50-5.90); White Blood Count 9.1 Thou/mm3 (3.8-10.6)
[2025-09-17 06:24] LABS: Alanine Aminotransferase 30 U/L (10-49); Albumin, Serum 4.4 gm/dL (3.4-4.8); Albumin/Globulin Ratio 2.0 (1.2-2.2); Alkaline Phosphatase 79 U/L (46-116); Anion Gap 12 (7-16); Aspartate Amino Transferase 38 U/L (0-34); BUN/Creatinine Ratio 21 Ratio (12-20); Bilirubin,Total 0.6 mg/dL (0.3-1.2); Blood Urea Nitrogen 25 mg/dL (9-23); Calcium 9.3 mg/dL (8.3-10.6); Calcium (Corrected) 9.3 mg/dL (8.5-10.1); Carbon Dioxide 25.7 mMol/L (20.0-31.0); Chloride 102 mMol/L (98-107); Creatinine (Component) 1.2 mg/dL (0.6-1.3); Globulin 2.2 gm/dL (2.3-3.5); Glucose 183 mg/dL (74-106); Osmolality,Calculated 288 (275-295); Potassium 4.8 mMol/L (3.4-5.1); Sodium 140 mMol/L (136-145); Total Protein 6.6 gm/dL (5.7-8.2); eGFR 59 See Note
[2025-09-17] MEDS: INSULIN LISPRO (AdmeLOG) 1 UNIT/0.01 ML UNIT SC ×3 (08:02→20:45)
--- NOTE | 2025-09-17 08:43 | ESPR_ITS ---
Documentation for date of: 09/17/25 Subjective Subjective Interval history: Patient received operative treatment with a cephalomedullary nail for his intertrochanteric fracture yesterday 09/16. Patient has severe dementia which limits effects communication. His pain regime is Salix 5 po q4hr. Did not have bowel movement today. Currently on Senna 1 tab po qd. Given Miralax 17g POx1. He is placed in soft restraints due to attempts to remove IV lines. Will reassess and attempt to discontinue restraints to evaluate patient's tolerance. Physical Therapy recommended rehab placement. Patient's family agreed for SNF placement. Will continue to monitor. Pending discharge within 24 to 28hrs. No Overnight events. Labs reviewed and patient examined at the bedside. Denies chest pain, palpation, SOB, abdominal pain, N/V, fevers or chills. Exam Vital Signs Temp Pulse Resp BP Pulse Ox O2 Del Method O2 Flow Rate 96.9 F 77 13 119/66 99 High Flow Nasal Cannula 09/17/25 08:00 09/17/25 08:00 09/17/25 08:00 09/17/25 08:00 09/17/25 08:00 09/17/25 08:00 09/17/25 08:00 FiO2 60 09/17/25 08:00 Narrative Exam General: No acute distress, Oriented x0 (dementia baseline) Eye: Normal conjunctiva, no scleral icterus HENT: Normocephalic, atraumatic, hearing intact to conversation at normal volume, moist oral mucosa Neck: Supple, non-tender, no JVD, no lymphadenopathy Lungs: Non-labored respirations, symmetric chest rise, Clear to auscultate bilaterally, No wheezing, rhonchi, crackles Heart: Peripheral pulses intact bilaterally, Regular Rate and Rhythm. Abdomen: Soft, non-tender, non-distended, no palpable masses Musculoskeletal: No cyanosis or edema, No visible joint swelling, Missing 3 digits on left hand since childbirth. Clear, non-draining, non-erythematous Surgical site on left thigh Skin: Skin is warm, dry, no rashes or lesions. Psychiatric: Cooperative, appropriate mood and affect Neuro: Cranial nerves II-XII grossly intact. Sensations intact to light touch. Objective Labs 09/18/25 04:53 09/18/25 04:53 Labs: Laboratory Results - last 24 hr 09/16/25 09/17/25 22:22 05:11 WBC 9.1 RBC 4.62 Hgb 13.1 L Hct 40.4 L MCV 87 MCH 28.4 MCHC 32.4 RDW Std Deviation 48.4 H Plt Count 146 Neut % (Auto) 83 H Lymph % (Auto) 6 L [place]barger % (Auto) 11 Eos % (Auto) 0 Baso % (Auto) 0 Neut # (Auto) 7.5 Lymph # (Auto) 0.6 L [place]barger # (Auto) 1.0 H Eos # (Auto) 0.0 Baso # (Auto) 0.0 Immature Gran # (Auto) 0.04 H Absolute Nucleated RBC 0.00 Immature Gran % 0 Nucleated RBC % 0 Puncture Site Right Radial ABG pH 7.34 L ABG pCO2 50 H ABG pO2 55 L* ABG HCO3 27 H ABG O2 Saturation 88 L ABG Base Excess 0 Oxygen Liter Flow 10 Sodium 140 Potassium 4.8 D Chloride 102 Carbon Dioxide 25.7 Anion Gap 12 BUN 25 H Creatinine 1.2 Estim Creat Clear Calc Not Performed. eGFR 59 L BUN/Creatinine Ratio 21 H Glucose 183 H D Calculated Osmolality 288 Calcium 9.3 Corrected Calcium 9.3 Total Bilirubin 0.6 AST 38 H ALT 30 Alkaline Phosphatase 79 Total Protein 6.6 Albumin 4.4 Globulin 2.2 L Albumin/Globulin Ratio 2.0 ABG Interpretation ABG results: 09/16/25 22:22 ABG pH 7.34 L ABG pCO2 50 H ABG pO2 55 L* ABG HCO3 27 H ABG O2 Saturation 88 L ABG Base Excess 0 Quality Measures Quality Measures none Advance care planning discussed with:: patient, spouse and child Assessment & Plan Assessment Current Active Medications: Generic Name Dose Route Start Last Admin Trade Name Freq PRN Reason Stop Dose Admin Acetaminophen 650 mg 09/13/25 17:50 09/13/25 20:37 Acetaminophen 325 Mg Tablet PO 10/13/25 17:49 650 mg Q6H PRN Administration Pain 1-3 and/or Fever >100.1 Hydrocodone Bitart/Acetaminophen 1 tab 09/13/25 17:50 09/14/25 04:50 Hydrocodone/Apap 5/325 Tablet PO 09/18/25 17:49 1 tab Q4HR PRN Administration PAIN SCALE 4-6 (Moderate Albuterol/Ipratropium 3 ml 09/16/25 08:46 10/27/25 17:50 Albuterol/Ipratropium (Duoneb) Rt Katey 3 Ml Nebu INH 10/16/25 09:59 3 ml Q2HR PRN Administration SHORTNESS OF BREATH Atorvastatin Calcium 40 mg 09/17/25 09:00 Atorvastatin Calcium 20 Mg Tablet PO 10/17/25 08:59 DAILY FRANCESCA Rivastigmine 0 ea 09/14/25 09:00 09/16/25 09:58 Transdermal System 9 TOP 10/14/25 08:59 1 patch .5 Mg/24 Hrs QDAY FRANCESCA Administration Dextrose 25 ml 09/13/25 17:55 Dextrose 50%-Water Inj 50 Ml Syringe IV 10/13/25 17:54 Q15MIN PRN BG 50-70 responsive npo pt Dextrose 50 ml 09/13/25 17:55 Dextrose 50%-Water Inj 50 Ml Syringe IV 10/13/25 17:54 Q15MIN PRN BG <50 OR BG <70 & pt unresponsive Glucagon 1 mg 09/13/25 17:55 Glucagon Inj 1 Mg Vial IM Q15MIN PRN BG <70, and no IV access Ceftriaxone Sodium/Dextrose 1 gm in 50 mls @ 100 mls/hr 09/13/25 17:57 09/16/25 17:38 Rocephin/D5w 1gm Iv Premix IV 09/20/25 17:56 100 mls/hr QDAY@1400 FRANCESCA Administration Azithromycin 500 mg/ Sodium 250 mls @ 250 mls/hr 09/14/25 09:18 09/16/25 09:58 Chloride IV 09/17/25 09:17 250 mls/hr QDAY FRANCESCA Administration Lactated Ringer's 500 mls @ 999 mls/hr 09/17/25 08:17 Lactated Ringers IV 09/17/25 08:47 .Q31M ONE Insulin Human Lispro 0 unit 09/13/25 21:00 09/17/25 08:02 Insulin Lispro (Admelog) 1 Unit/0.01 Ml Unit SC 10/13/25 20:59 1 unit ACHS FRANCESCA Administration Protocol Memantine 10 mg 09/13/25 21:00 09/16/25 20:26 Memantine Hcl 5 Mg Tablet PO 10/13/25 20:59 Not Given BID FRANCESCA Morphine Sulfate 0.5 mg 09/13/25 17:50 09/15/25 16:57 Morphine Sulf Inj 4 Mg/Ml Vial IVP 09/18/25 17:49 0.5 mg Q4HR PRN Administration PAIN SCALE 7-10 (Severe Ondansetron HCl 4 mg 09/13/25 17:50 Ondansetron Inj 2 Mg/Ml Inj 2 Ml IVP 10/13/25 17:49 Q6H PRN NAUSEA OR VOMITING Protocol Quetiapine Fumarate 25 mg 09/13/25 21:00 09/16/25 20:26 Quetiapine Fumarate 25 Mg Tablet PO 10/13/25 20:59 Not Given BID FRANCESCA Sennosides 1 tab 09/13/25 17:50 Senna Tablet PO 10/13/25 17:49 QDAY PRN constipation Protocol Plan 85-year-old male with past medical history of CAD status post stent placement some 20 years ago on rosuvastatin, dementia on memantine, rivastigmine and Seroquel who presented after he had a witnessed fall will be admitted for orthopedic consultation and surgery which will be tentatively scheduled for 09/15 pending cardiology clearance. #Acute left hip fracture #Elevated fall -Femur XR (09/13/2025): Acute fracture left hip, low femoral neck and partly intertrochanteric. Angulation at the fracture site. Shaft of the femur are intact -Hip/Pelvis XR (09/13/2025): Acute left hip fracture left femoral neck and partly intertrochanteric. Right hip bones of the pelvis intact -Pelvis CT (09/13/2025): Acute left hip fracture, left femoral neck partly intertrochanteric, mild angulation at the fracture site -Knee XR, left (09/13/2025): No acute fracture -ECHO (09/13/2025): Hyperdynamic.Normal left ventricular size and function. Approximate ejection fraction is 50-55%. Normal right ventricular size and function. Mildly dilatd LA. Aortic valve sclerosis without stenosis. Trace -mild mitral, aortic regurgitation and trace tricuspid regurgitation. LOW CARDIAC RISK FOR SURGERY -Patient received operative treatment with a cephalomedullary nail for his intertrochanteric fracture 09/16. Plan: -Continue to monitor CBC, CMP. -Multimodal pain management #Acute hypoxic respiratory failure 2/ #Left base pneumonia Patient recently started on Z-Negro for fever episode at home with associated rhinitis Patient requiring 5 L of supplemental oxygen and saturating 92-93% but white count down trended to 6.2 Plan: Continue ceftriaxone 1 g daily Added IV azithromycin 500 mg for 3 days Continue supplemental oxygen as needed #Coronary artery disease status post stent placement As noted above, patient had a stent placed some time 20 years ago, last follow- up with cardiology was about 2 weeks ago per family Cardiology consulted for recommendations Will hold off on rosuvastatin at this time but will consider restarting it tomorrow #Hyperglycemic On assessment, patient is hyperglycemic with bedside blood sugar of 209 Last A1c of 5 Plan: Will start sliding scale insulin #Mild normocytic anemia Hemoglobin of 13.4 with MCV of 86 Plan: Will monitor with morning labs Follow-up on morning iron panel and ferritin #Dementia Patient on memantine 10 mg p.o. twice daily, quetiapine 25 mg p.o. 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 Ramirez and Dr. Jalloh (PGY-3) Dr. Stone (PGY-1) - Internal medicine resident Attending Provider Attestation/Addendum I have examined the patient, reviewed labs and imaging findings, discussed the case with the resident(s), and reviewed entered orders. I agree with the plan of care as outlined in this note, with these additional summaries/recommendations: Patient and patient's seen at bedside. No acute overnight events. Patient is postoperative day #1 status post left hip cephalomedullary nail. Continue pain management. Wound care. Patient was unable to bear weight with PT today. Patient appears to have developed mild delirium and likely has undiagnosed underlying dementia. He was placed in mittens and will remove when able. Patient developed acute hypoxic respiratory failure secondary to bacterial pneumonia. Patient on high flow nasal cannula this morning and we will wean as tolerated. Continue IV antibiotics. Follow-up culture results when available. Continue pain management. Patient and patient's updated on the plan. All questions answered to satisfaction. Please see residents note for additional details and treatment. Dr. James MD
--- NOTE | 2025-09-17 09:26 | PC.SS ---
Update: Patient on high flow oxygen. Patient receiving IV antibiotics.
[2025-09-17] MEDS: RIVASTIGMINE 9.5 MG/24 HR TOP (10:30)
[2025-09-17] MEDS: POLYETHYLENE GLYCOL 17 GM PACKET PO (10:33)
[2025-09-17] MEDS: RINGERS LACTATED 500 ML 500 ML 999 ML IV (10:33)
[2025-09-17] MEDS: ATORVASTATIN CALCIUM 20 MG TABLET 40 MG PO (10:34)
[2025-09-17] MEDS: AZITHROMYCIN INJ 500 MG in SODIUM CHLORIDE 0.9% 250 ML 250 ML 250 MG IV (10:34)
[2025-09-17] MEDS: MEMANTINE HCL 5 MG TABLET 10 MG PO ×2 (10:34→20:43)
--- NOTE | 2025-09-17 11:17 | PC.SS ---
MANAGER PATIENT confirmed with patient's spouse plan is to transition patient to SNF upon discharge. Preferred facility is [facility]. Spouse informed that authorization would need to be obtained prior to placement.
--- NOTE | 2025-09-17 12:13 | ESPR_ITS ---
<Statement entered by Samuel Gongora MD - 09/21/25 12:10> I personally evaluated and examined this patient who is well-known to me alongside history of CAD stent placement underwent surgery for fracture of the hip recovering well patient has Developed hypoxia tachycardia requiring oxygenation also developed possible pneumonia infiltrate improving not have any chest pain shortness breath evaluated patient with resident physician Dr. Tanner PAYTON PGY2 agree with the treatment plan recommendation as documented. Documentation for date of: 09/17/25 Subjective Subjective Interval history: No acute overnight events. Oxygen requirements increased overnight as patient was on HFNC but has since been transitioned back to nasal cannula. Suspect inability or decreased ability to clear secretions as repeat CXR does not show worsening in pneumonia that parallels increased oxygen requirements. Otherwise, underwent surgery for repair of left hip fracture and tolerated well. His sinus tachycardia has since resolved Exam Vital Signs Temp Pulse Resp BP Pulse Ox O2 Del Method O2 Flow Rate 96.9 F 87 20 119/66 93 L High Flow Nasal Cannula 20 09/17/25 08:00 09/17/25 10:37 09/17/25 10:37 09/17/25 08:00 09/17/25 10:37 09/17/25 08:00 09/17/25 10:37 FiO2 35 09/17/25 10:37 Narrative Exam General: alert, no acute distress, able to speak full sentences HEENT: NC/AT, mucous membranes moist, bilateral sclera anicteric Cardiovascular: tachycardic, regular rhythm, S1/S2 present, no murmurs appreciated Pulmonary: coarse lung sounds bilaterally Abdominal: soft, non-tender, non-distended, no rebound/guarding, normal bowel sounds present Musculoskeletal: missing 3 digits of left hand since childbirth; normal ROM, no peripheral edema Skin: warm and dry, intact, no rashes Neuro: no focal deficits Objective Labs 09/17/25 05:11 09/17/25 05:11 Labs: Laboratory Results - last 24 hr 09/16/25 09/17/25 22:22 05:11 WBC 9.1 RBC 4.62 Hgb 13.1 L Hct 40.4 L MCV 87 MCH 28.4 MCHC 32.4 RDW Std Deviation 48.4 H Plt Count 146 Neut % (Auto) 83 H Lymph % (Auto) 6 L [place] % (Auto) 11 Eos % (Auto) 0 Baso % (Auto) 0 Neut # (Auto) 7.5 Lymph # (Auto) 0.6 L [place] # (Auto) 1.0 H Eos # (Auto) 0.0 Baso # (Auto) 0.0 Immature Gran # (Auto) 0.04 H Absolute Nucleated RBC 0.00 Immature Gran % 0 Nucleated RBC % 0 Puncture Site Right Radial ABG pH 7.34 L ABG pCO2 50 H ABG pO2 55 L* ABG HCO3 27 H ABG O2 Saturation 88 L ABG Base Excess 0 Oxygen Liter Flow 10 Sodium 140 Potassium 4.8 D Chloride 102 Carbon Dioxide 25.7 Anion Gap 12 BUN 25 H Creatinine 1.2 Estim Creat Clear Calc Not Performed. eGFR 59 L BUN/Creatinine Ratio 21 H Glucose 183 H D Calculated Osmolality 288 Calcium 9.3 Corrected Calcium 9.3 Total Bilirubin 0.6 AST 38 H ALT 30 Alkaline Phosphatase 79 Total Protein 6.6 Albumin 4.4 Globulin 2.2 L Albumin/Globulin Ratio 2.0 ABG Interpretation ABG results: 09/16/25 22:22 ABG pH 7.34 L ABG pCO2 50 H ABG pO2 55 L* ABG HCO3 27 H ABG O2 Saturation 88 L ABG Base Excess 0 Quality Measures Quality Measures none Advance care planning discussed with:: patient Assessment & Plan Assessment Current Active Medications: Generic Name Dose Route Start Last Admin Trade Name Freq PRN Reason Stop Dose Admin Acetaminophen 650 mg 09/13/25 17:50 09/13/25 20:37 Acetaminophen 325 Mg Tablet PO 10/13/25 17:49 650 mg Q6H PRN Administration Pain 1-3 and/or Fever >100.1 Hydrocodone Bitart/Acetaminophen 1 tab 09/13/25 17:50 09/14/25 04:50 Hydrocodone/Apap 5/325 Tablet PO 09/18/25 17:49 1 tab Q4HR PRN Administration PAIN SCALE 4-6 (Moderate Albuterol/Ipratropium 3 ml 09/16/25 08:46 09/16/25 17:50 Albuterol/Ipratropium (Duoneb) Rt Katey 3 Ml Nebu INH 10/16/25 09:59 3 ml Q2HR PRN Administration SHORTNESS OF BREATH Atorvastatin Calcium 40 mg 09/17/25 09:00 09/17/25 10:34 Atorvastatin Calcium 20 Mg Tablet PO 10/17/25 08:59 40 mg DAILY FRANCESCA Administration Rivastigmine 0 ea 09/14/25 09:00 09/17/25 10:30 Transdermal System 9 TOP 10/14/25 08:59 1 patch .5 Mg/24 Hrs QDAY FRANCESCA Administration Dextrose 25 ml 09/13/25 17:55 Dextrose 50%-Water Inj 50 Ml Syringe IV 10/13/25 17:54 Q15MIN PRN BG 50-70 responsive npo pt Dextrose 50 ml 09/13/25 17:55 Dextrose 50%-Water Inj 50 Ml Syringe IV 10/13/25 17:54 Q15MIN PRN BG <50 OR BG <70 & pt unresponsive Glucagon 1 mg 09/13/25 17:55 Glucagon Inj 1 Mg Vial IM Q15MIN PRN BG <70, and no IV access Ceftriaxone Sodium/Dextrose 1 gm in 50 mls @ 100 mls/hr 09/13/25 17:57 09/16/25 17:38 Rocephin/D5w 1gm Iv Premix IV 09/20/25 17:56 100 mls/hr QDAY@1400 FRANCESCA Administration Insulin Human Lispro 0 unit 09/13/25 21:00 09/17/25 12:08 Insulin Lispro (Admelog) 1 Unit/0.01 Ml Unit SC 10/13/25 20:59 2 unit ACHS FRANCESCA Administration Protocol Memantine 10 mg 09/13/25 21:00 09/17/25 10:34 Memantine Hcl 5 Mg Tablet PO 10/13/25 20:59 10 mg BID FRANCESCA Administration Morphine Sulfate 0.5 mg 09/13/25 17:50 09/15/25 16:57 Morphine Sulf Inj 4 Mg/Ml Vial IVP 09/18/25 17:49 0.5 mg Q4HR PRN Administration PAIN SCALE 7-10 (Severe Ondansetron HCl 4 mg 09/13/25 17:50 Ondansetron Inj 2 Mg/Ml Inj 2 Ml IVP 10/13/25 17:49 Q6H PRN NAUSEA OR VOMITING Protocol Quetiapine Fumarate 25 mg 09/13/25 21:00 09/17/25 10:34 Quetiapine Fumarate 25 Mg Tablet PO 10/13/25 20:59 25 mg BID FRANCESCA Administration Sennosides 1 tab 09/18/25 09:00 Senna Tablet PO 10/18/25 08:59 QDAY FRANCESCA Protocol Plan Helder Donahue is an 85-year-old male with a past medical history of coronary artery disease status post stent placement of LAD in 2005, upper GI bleed, and dementia who is admitted for left hip fracture and cardiology consulted for clearance. #Acute fracture of left hip #Low femoral neck and partial intertrochanteric fracture with angulation at fracture site Presents after ground-level fall and found to have an acute fracture. Cardiology consulted for clearance for procedure planned on Tuesday vs. Tuesday. Patient follows up on outpatient basis and was last seen 05/2025. At that time patient was doing well and echocardiogram done showed normal-sized chambers, normal-sized LV with EF 51%, diastolic dysfunction noted with mild TR. ? Low cardiac risk and cleared for orthopedic procedure #Sinus tachycardia Telemetry reviewed and EKG obtained and showing sinus tachycardia. Suspect to be due to pain at this time and planned for OR today. ? Continue to monitor on telemetry #Coronary artery disease status post stent in LAD (2005) Not on aspirin given history of GI bleed ? Rosuvastatin 10 mg daily #Dementia #Left lower lobe pneumonia #History of GI bleed #Chronic, normocytic anemia ? Continue management per primary team ----- Plan discussed with attending physician Dr. Rolan Payton MD PGY-2 Internal Medicine
--- NOTE | 2025-09-17 14:34 | PC.SS ---
Rounding Note: Patient is post op day 1. Physical therapy evaluation is pending. D/C to SNF.
--- NOTE | 2025-09-17 15:05 | PC.SS ---
PT note submitted to [facility] to generate authorization process. MECHANICAL SYSTEM TECHNICIAN confirmed with [place] that facility will accept the patient for placement, pending authorization.
[2025-09-17] MEDS: cefTRIAXone/D5w 1gm IV premix 1 GM/50 ML BAG IV (15:18)
[2025-09-17] MEDS: APIXABAN 2.5 MG TABLET PO (20:43)
[2025-09-18] VITALS (8 sets, daily range): BP systolic 107–134; BP diastolic 61–94; PULSE 58–94; RESP 15–21; TEMP 36.1–36.9; O2SAT 97–100; BMI 28.6; BMI 12.0
[2025-09-18 06:01] LABS: Basophils # (Auto) 0.0 Thou/mm3 (0.0-0.2); Basophils % (Auto) 0 % (0-2.5); Eosinophils # (Auto) 0.0 Thou/mm3 (0.0-0.5); Eosinophils % (Auto) 0 % (0-10); Hematocrit 36.5 % (41.0-53.0); Hemoglobin 11.7 g/dL (13.5-16.0); Immature Granulocytes Auto 0.07 Thou/mm3 (0.00-0.00); Lymphocytes # (Auto) 0.7 Thou/mm3 (1.0-4.8); Lymphocytes % (Auto) 6 % (10-50); Mean Corpuscular HGB Conc 32.1 g/dl (31.0-37.0); Mean Corpuscular Hemoglobin 28.1 pg (25.0-35.0); Mean Corpuscular Volume 88 fL (80-100); Monocytes # (Auto) 1.0 Thou/mm3 (0.0-0.8); Monocytes % (Auto) 9 % (0-12); Neutrophils # (Auto) 9.6 Thou/mm3 (1.8-7.7); Neutrophils % (Auto) 85 % (37-80); Nucleated Red Blood Cell # 0.00 Thou/mm3 (0.00-0.00); Nucleated Red Blood Cell % 0 /100 WBC (0); Platelet Count 170 Thou/mm3 (140-440); RDW Standard Deviation 48.1 fL (35.1-43.9); Red Blood Count 4.17 Miln/mm3 (4.50-5.90); White Blood Count 11.3 Thou/mm3 (3.8-10.6)
[2025-09-18 06:26] LABS: Alanine Aminotransferase 97 U/L (10-49); Albumin, Serum 4.0 gm/dL (3.4-4.8); Albumin/Globulin Ratio 1.7 (1.2-2.2); Alkaline Phosphatase 74 U/L (46-116); Anion Gap 7 (7-16); Aspartate Amino Transferase 127 U/L (0-34); BUN/Creatinine Ratio 20 Ratio (12-20); Bilirubin,Total 0.5 mg/dL (0.3-1.2); Blood Urea Nitrogen 18 mg/dL (9-23); Calcium 9.4 mg/dL (8.3-10.6); Calcium (Corrected) 9.4 mg/dL (8.5-10.1); Carbon Dioxide 27.9 mMol/L (20.0-31.0); Chloride 104 mMol/L (98-107); Creatinine (Component) 0.9 mg/dL (0.6-1.3); Estimated Creatinine Clearance 58.4 mL/min (>60); Globulin 2.4 gm/dL (2.3-3.5); Glucose 129 mg/dL (74-106); Magnesium 2.5 mg/dL (1.6-2.6); Osmolality,Calculated 281 (275-295); Phosphorous 2.5 mg/dL (2.4-5.1); Potassium 4.6 mMol/L (3.4-5.1); Sodium 139 mMol/L (136-145); Total Protein 6.4 gm/dL (5.7-8.2); eGFR > 60 See Note
--- NOTE | 2025-09-18 07:00 | PC.NURSE ---
Mittens removed, telesitter in place. Pt. tolerating well at this time. Pt. needs frequent reorientation.
--- NOTE | 2025-09-18 08:24 | PC.NURSE ---
Dr. Stone aware pt. still has not had BM. states I will order something else.
[2025-09-18] MEDS: ATORVASTATIN CALCIUM 20 MG TABLET 40 MG PO (08:39)
[2025-09-18] MEDS: MEMANTINE HCL 5 MG TABLET 10 MG PO (08:39)
[2025-09-18] MEDS: APIXABAN 2.5 MG TABLET PO (08:40)
[2025-09-18] MEDS: LACTULOSE SYRUP 20 GM/30 ML UDC PO (08:40)
[2025-09-18] MEDS: RIVASTIGMINE 9.5 MG/24 HR TOP (08:40)
[2025-09-18] MEDS: POLYETHYLENE GLYCOL 17 GM PACKET PO (08:41)
[2025-09-18] MEDS: INSULIN LISPRO (AdmeLOG) 1 UNIT/0.01 ML UNIT SC (11:23)
--- NOTE | 2025-09-18 12:26 | ESPR_ITS ---
<Statement entered by Samuel Gongora MD - 09/21/25 12:11> I personally examined the patient evaluated with resident physician Dr. Tanner PAYTON PGY2 agree with the treatment plan recommendation as documented patient is improving whenever patient is stable cardiac curry stable to be transferred to SNF for rehabilitation Documentation for date of: 09/18/25 Subjective Subjective Interval history: No acute overnight events. Seen and examined at bedside with family present. Continues to require supplemental oxygen and satruating in the low 90s. Otherwise, underwent surgery for repair of left hip fracture and tolerated well. Plans for discharge to SNF for further rehabilitation. Exam Vital Signs Temp Pulse Resp BP Pulse Ox O2 Del Method O2 Flow Rate 97.7 F 88 19 134/94 H 97 Nasal Cannula 3 09/18/25 12:00 09/18/25 12:00 09/18/25 12:00 09/18/25 12:00 09/18/25 12:00 09/18/25 12:00 09/18/25 12:00 FiO2 35 09/17/25 10:37 Narrative Exam General: alert, no acute distress, able to speak full sentences HEENT: NC/AT, mucous membranes moist, bilateral sclera anicteric Cardiovascular: tachycardic, regular rhythm, S1/S2 present, no murmurs appreciated Pulmonary: coarse lung sounds bilaterally Abdominal: soft, non-tender, non-distended, no rebound/guarding, normal bowel sounds present Musculoskeletal: missing 3 digits of left hand since childbirth; normal ROM, no peripheral edema Skin: warm and dry, intact, no rashes Neuro: no focal deficits Objective Labs 09/18/25 04:53 09/18/25 04:53 Labs: Laboratory Results - last 24 hr 09/18/25 04:53 WBC 11.3 H RBC 4.17 L Hgb 11.7 L Hct 36.5 L MCV 88 MCH 28.1 MCHC 32.1 RDW Std Deviation 48.1 H Plt Count 170 Neut % (Auto) 85 H Lymph % (Auto) 6 L [place] % (Auto) 9 Eos % (Auto) 0 Baso % (Auto) 0 Neut # (Auto) 9.6 H Lymph # (Auto) 0.7 L [place] # (Auto) 1.0 H Eos # (Auto) 0.0 Baso # (Auto) 0.0 Immature Gran # (Auto) 0.07 H Absolute Nucleated RBC 0.00 Immature Gran % 1 H Nucleated RBC % 0 Sodium 139 Potassium 4.6 Chloride 104 Carbon Dioxide 27.9 Anion Gap 7 BUN 18 Creatinine 0.9 Estim Creat Clear Calc 58.4 L eGFR > 60 BUN/Creatinine Ratio 20 Glucose 129 H D Calculated Osmolality 281 Calcium 9.4 Corrected Calcium 9.4 Phosphorus 2.5 Magnesium 2.5 Total Bilirubin 0.5 AST 127 H ALT 97 H Alkaline Phosphatase 74 Total Protein 6.4 Albumin 4.0 Globulin 2.4 Albumin/Globulin Ratio 1.7 ABG Interpretation ABG results: 09/16/25 22:22 ABG pH 7.34 L ABG pCO2 50 H ABG pO2 55 L* ABG HCO3 27 H ABG O2 Saturation 88 L ABG Base Excess 0 Quality Measures Quality Measures none Advance care planning discussed with:: patient Assessment & Plan Assessment Current Active Medications: Generic Name Dose Route Start Last Admin Trade Name Freq PRN Reason Stop Dose Admin Acetaminophen 650 mg 09/13/25 17:50 09/13/25 20:37 Acetaminophen 325 Mg Tablet PO 10/13/25 17:49 650 mg Q6H PRN Administration Pain 1-3 and/or Fever >100.1 Hydrocodone Bitart/Acetaminophen 1 tab 09/13/25 17:50 09/14/25 04:50 Hydrocodone/Apap 5/325 Tablet PO 09/18/25 17:49 1 tab Q4HR PRN Administration PAIN SCALE 4-6 (Moderate Albuterol/Ipratropium 3 ml 09/16/25 08:46 09/16/25 17:50 Albuterol/Ipratropium (Duoneb) Rt Katey 3 Ml Nebu INH 10/16/25 09:59 3 ml Q2HR PRN Administration SHORTNESS OF BREATH Apixaban 2.5 mg 09/17/25 21:00 09/18/25 08:40 Apixaban 2.5 Mg Tablet PO 10/17/25 20:59 2.5 mg BID FRANCESCA Administration Atorvastatin Calcium 40 mg 09/17/25 09:00 09/18/25 08:39 Atorvastatin Calcium 20 Mg Tablet PO 10/17/25 08:59 40 mg DAILY FRANCESCA Administration Rivastigmine 0 ea 09/14/25 09:00 09/18/25 08:40 Transdermal System 9 TOP 10/14/25 08:59 1 patch .5 Mg/24 Hrs QDAY FRANCESCA Administration Dextrose 25 ml 09/13/25 17:55 Dextrose 50%-Water Inj 50 Ml Syringe IV 10/13/25 17:54 Q15MIN PRN BG 50-70 responsive npo pt Dextrose 50 ml 09/13/25 17:55 Dextrose 50%-Water Inj 50 Ml Syringe IV 10/13/25 17:54 Q15MIN PRN BG <50 OR BG <70 & pt unresponsive Glucagon 1 mg 09/13/25 17:55 Glucagon Inj 1 Mg Vial IM Q15MIN PRN BG <70, and no IV access Ceftriaxone Sodium/Dextrose 1 gm in 50 mls @ 100 mls/hr 09/13/25 17:57 09/17/25 15:18 Rocephin/D5w 1gm Iv Premix IV 09/20/25 17:56 100 mls/hr QDAY@1400 FRANCESCA Administration Insulin Human Lispro 0 unit 09/13/25 21:00 09/18/25 11:23 Insulin Lispro (Admelog) 1 Unit/0.01 Ml Unit SC 10/13/25 20:59 1 unit ACHS FRANCESCA Administration Protocol Memantine 10 mg 09/13/25 21:00 09/18/25 08:39 Memantine Hcl 5 Mg Tablet PO 10/13/25 20:59 10 mg BID FRANCESCA Administration Morphine Sulfate 0.5 mg 09/13/25 17:50 09/15/25 16:57 Morphine Sulf Inj 4 Mg/Ml Vial IVP 09/18/25 17:49 0.5 mg Q4HR PRN Administration PAIN SCALE 7-10 (Severe Ondansetron HCl 4 mg 09/13/25 17:50 Ondansetron Inj 2 Mg/Ml Inj 2 Ml IVP 10/13/25 17:49 Q6H PRN NAUSEA OR VOMITING Protocol Quetiapine Fumarate 25 mg 09/13/25 21:00 09/18/25 08:40 Quetiapine Fumarate 25 Mg Tablet PO 10/13/25 20:59 25 mg BID FRANCESCA Administration Sennosides 1 tab 09/18/25 09:00 09/18/25 08:40 Senna Tablet PO 10/18/25 08:59 1 tab QDAY FRANCESCA Administration Protocol Plan Helder Donahue is an 85-year-old male with a past medical history of coronary artery disease status post stent placement of LAD in 2005, upper GI bleed, and dementia who is admitted for left hip fracture and cardiology consulted for clearance. #Acute fracture of left hip #Low femoral neck and partial intertrochanteric fracture with angulation at fracture site Presents after ground-level fall and found to have an acute fracture. Cardiology consulted for clearance for procedure planned on Tuesday vs. Tuesday. Patient follows up on outpatient basis and was last seen 05/2025. At that time patient was doing well and echocardiogram done showed normal-sized chambers, normal-sized LV with EF 51%, diastolic dysfunction noted with mild TR. ? Status post surgical repair of left hip fracture ? Continue regular outpatient follow-up #Sinus tachycardia, resolved Telemetry reviewed and EKG obtained and showing sinus tachycardia. Suspect to be due to pain at this time and planned for OR today. ? Continue to monitor on telemetry #Coronary artery disease status post stent in LAD (2005) Not on aspirin given history of GI bleed ? Rosuvastatin 10 mg daily #Dementia #Left lower lobe pneumonia #History of GI bleed #Chronic, normocytic anemia ? Continue management per primary team ----- Plan discussed with attending physician Dr. Rolan Payton MD PGY-2 Internal Medicine
--- NOTE | 2025-09-18 13:06 | PD.RESPRO ---
Documentation for date of: 09/18/25 Subjective Subjective Interval history: Pending discharge to SNF. Currently waiting for Bowel movement. Will continue to monitor. Eliquis 2.5mg po bid added for DVT prophylaxis. No Overnight events. Labs reviewed and patient examined at the bedside. Denies chest pain, palpation, SOB, abdominal pain, N/V, fevers or chills. Exam Vital Signs Temp Pulse Resp BP Pulse Ox O2 Del Method O2 Flow Rate 97.7 F 88 19 134/94 H 97 Nasal Cannula 3 09/18/25 12:00 09/18/25 12:00 09/18/25 12:00 09/18/25 12:00 09/18/25 12:00 09/18/25 12:00 09/18/25 12:00 FiO2 35 09/17/25 10:37 Narrative Exam General: No acute distress, Oriented x0 (dementia baseline) Eye: Normal conjunctiva, no scleral icterus HENT: Normocephalic, atraumatic, hearing intact to conversation at normal volume, moist oral mucosa Neck: Supple, non-tender, no JVD, no lymphadenopathy Lungs: Non-labored respirations, symmetric chest rise, Clear to auscultate bilaterally, No wheezing, rhonchi, crackles Heart: Peripheral pulses intact bilaterally, Regular Rate and Rhythm. Abdomen: Soft, non-tender, non-distended, no palpable masses Musculoskeletal: No cyanosis or edema, No visible joint swelling, Missing 3 digits on left hand since childbirth. Clear, non-draining, non-erythematous Surgical site on left thigh Skin: Skin is warm, dry, no rashes or lesions. Psychiatric: Cooperative, appropriate mood and affect Neuro: Cranial nerves II-XII grossly intact. Sensations intact to light touch. Objective Labs 09/18/25 04:53 09/18/25 04:53 Labs: Laboratory Results - last 24 hr 09/18/25 04:53 WBC 11.3 H RBC 4.17 L Hgb 11.7 L Hct 36.5 L MCV 88 MCH 28.1 MCHC 32.1 RDW Std Deviation 48.1 H Plt Count 170 Neut % (Auto) 85 H Lymph % (Auto) 6 L [place] % (Auto) 9 Eos % (Auto) 0 Baso % (Auto) 0 Neut # (Auto) 9.6 H Lymph # (Auto) 0.7 L [place] # (Auto) 1.0 H Eos # (Auto) 0.0 Baso # (Auto) 0.0 Immature Gran # (Auto) 0.07 H Absolute Nucleated RBC 0.00 Immature Gran % 1 H Nucleated RBC % 0 Sodium 139 Potassium 4.6 Chloride 104 Carbon Dioxide 27.9 Anion Gap 7 BUN 18 Creatinine 0.9 Estim Creat Clear Calc 58.4 L eGFR > 60 BUN/Creatinine Ratio 20 Glucose 129 H D Calculated Osmolality 281 Calcium 9.4 Corrected Calcium 9.4 Phosphorus 2.5 Magnesium 2.5 Total Bilirubin 0.5 AST 127 H ALT 97 H Alkaline Phosphatase 74 Total Protein 6.4 Albumin 4.0 Globulin 2.4 Albumin/Globulin Ratio 1.7 ABG Interpretation ABG results: 09/16/25 22:22 ABG pH 7.34 L ABG pCO2 50 H ABG pO2 55 L* ABG HCO3 27 H ABG O2 Saturation 88 L ABG Base Excess 0 Quality Measures Quality Measures none Advance care planning discussed with:: patient and other Assessment & Plan Assessment Current Active Medications: Generic Name Dose Route Start Last Admin Trade Name Freq PRN Reason Stop Dose Admin Acetaminophen 650 mg 09/13/25 17:50 09/13/25 20:37 Acetaminophen 325 Mg Tablet PO 10/13/25 17:49 650 mg Q6H PRN Administration Pain 1-3 and/or Fever >100.1 Hydrocodone Bitart/Acetaminophen 1 tab 09/13/25 17:50 09/14/25 04:50 Hydrocodone/Apap 5/325 Tablet PO 09/18/25 17:49 1 tab Q4HR PRN Administration PAIN SCALE 4-6 (Moderate Albuterol/Ipratropium 3 ml 09/16/25 08:46 09/16/25 17:50 Albuterol/Ipratropium (Duoneb) Rt Katey 3 Ml Nebu INH 10/16/25 09:59 3 ml Q2HR PRN Administration SHORTNESS OF BREATH Apixaban 2.5 mg 09/17/25 21:00 09/18/25 08:40 Apixaban 2.5 Mg Tablet PO 10/17/25 20:59 2.5 mg BID FRANCESCA Administration Atorvastatin Calcium 40 mg 09/17/25 09:00 09/18/25 08:39 Atorvastatin Calcium 20 Mg Tablet PO 10/17/25 08:59 40 mg DAILY FRANCESCA Administration Rivastigmine 0 ea 09/14/25 09:00 09/18/25 08:40 Transdermal System 9 TOP 10/14/25 08:59 1 patch .5 Mg/24 Hrs QDAY FRANCESCA Administration Dextrose 25 ml 09/13/25 17:55 Dextrose 50%-Water Inj 50 Ml Syringe IV 10/13/25 17:54 Q15MIN PRN BG 50-70 responsive npo pt Dextrose 50 ml 09/13/25 17:55 Dextrose 50%-Water Inj 50 Ml Syringe IV 10/13/25 17:54 Q15MIN PRN BG <50 OR BG <70 & pt unresponsive Glucagon 1 mg 09/13/25 17:55 Glucagon Inj 1 Mg Vial IM Q15MIN PRN BG <70, and no IV access Ceftriaxone Sodium/Dextrose 1 gm in 50 mls @ 100 mls/hr 09/13/25 17:57 09/17/25 15:18 Rocephin/D5w 1gm Iv Premix IV 09/20/25 17:56 100 mls/hr QDAY@1400 FRANCESCA Administration Insulin Human Lispro 0 unit 09/13/25 21:00 09/18/25 11:23 Insulin Lispro (Admelog) 1 Unit/0.01 Ml Unit SC 10/13/25 20:59 1 unit ACHS FRANCESCA Administration Protocol Memantine 10 mg 09/13/25 21:00 09/18/25 08:39 Memantine Hcl 5 Mg Tablet PO 10/13/25 20:59 10 mg BID FRNACESCA Administration Morphine Sulfate 0.5 mg 09/13/25 17:50 09/15/25 16:57 Morphine Sulf Inj 4 Mg/Ml Vial IVP 09/18/25 17:49 0.5 mg Q4HR PRN Administration PAIN SCALE 7-10 (Severe Ondansetron HCl 4 mg 09/13/25 17:50 Ondansetron Inj 2 Mg/Ml Inj 2 Ml IVP 10/13/25 17:49 Q6H PRN NAUSEA OR VOMITING Protocol Quetiapine Fumarate 25 mg 09/13/25 21:00 09/18/25 08:40 Quetiapine Fumarate 25 Mg Tablet PO 10/13/25 20:59 25 mg BID FRANCESCA Administration Sennosides 1 tab 09/18/25 09:00 09/18/25 08:40 Senna Tablet PO 10/18/25 08:59 1 tab QDAY FRANCESCA Administration Protocol Plan 85-year-old male with past medical history of CAD status post stent placement some 20 years ago on rosuvastatin, dementia on memantine, rivastigmine and Seroquel who presented after he had a witnessed fall will be admitted for orthopedic consultation and surgery which will be tentatively scheduled for 09/15 pending cardiology clearance. #Acute left hip fracture #Elevated fall -Femur XR (09/13/2025): Acute fracture left hip, low femoral neck and partly intertrochanteric. Angulation at the fracture site. Shaft of the femur are intact -Hip/Pelvis XR (09/13/2025): Acute left hip fracture left femoral neck and partly intertrochanteric. Right hip bones of the pelvis intact -Pelvis CT (09/13/2025): Acute left hip fracture, left femoral neck partly intertrochanteric, mild angulation at the fracture site -Knee XR, left (09/13/2025): No acute fracture -ECHO (09/13/2025): Hyperdynamic.Normal left ventricular size and function. Approximate ejection fraction is 50-55%. Normal right ventricular size and function. Mildly dilatd LA. Aortic valve sclerosis without stenosis. Trace -mild mitral, aortic regurgitation and trace tricuspid regurgitation. LOW CARDIAC RISK FOR SURGERY -Patient received operative treatment with a cephalomedullary nail for his intertrochanteric fracture 09/16. Plan: -Continue to monitor CBC, CMP. -Multimodal pain management #Acute hypoxic respiratory failure 2/ #Left base pneumonia Patient recently started on Z-Negro for fever episode at home with associated rhinitis Patient requiring 5 L of supplemental oxygen and saturating 92-93% but white count down trended to 6.2 Plan: Continue ceftriaxone 1 g daily Added IV azithromycin 500 mg for 3 days Continue supplemental oxygen as needed #Coronary artery disease status post stent placement As noted above, patient had a stent placed some time 20 years ago, last follow-up with cardiology was about 2 weeks ago per family Cardiology consulted for recommendations Will hold off on rosuvastatin at this time but will consider restarting it tomorrow #Hyperglycemic On assessment, patient is hyperglycemic with bedside blood sugar of 209 Last A1c of 5 Plan: Will start sliding scale insulin #Mild normocytic anemia Hemoglobin of 13.4 with MCV of 86 Plan: Will monitor with morning labs Follow-up on morning iron panel and ferritin #Dementia Patient on memantine 10 mg p.o. twice daily, quetiapine 25 mg p.o. 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
--- NOTE | 2025-09-18 13:40 | PC.SS ---
PASSR submitted to [email or web address] via [employer].
[2025-09-18] MEDS: cefTRIAXone/D5w 1gm IV premix 1 GM/50 ML BAG IV (14:22)
--- NOTE | 2025-09-18 14:31 | PC.SS ---
M[employer] FRONT DESK ATTENDANT confirmed that authorization for placement has been obtained.
--- NOTE | 2025-09-18 14:31 | PC.SS ---
Rounding Note: Patient pending bowel movement. D/C plan is to SNF.
--- NOTE | 2025-09-18 15:28 | PC.SS ---
Transport initiated with [facility]. Reference #[id number]. Preferred vendor [employer]. Awaiting authorization for transport.
--- NOTE | 2025-09-18 16:14 | PC.SS ---
Transport on will-call for 06:30 pm. Dispatch informed that patient ready at 06:00 pm. Dispatch provided tele marketing community liaison number to confirm transport time once [employer] authorizes transport.
--- NOTE | 2025-09-18 17:48 | PC.NURSE ---
Report provided to Michell at [facility]. Pt. coming after left hip fracture repair by Dr. Pérez. Michell aware of medications and follow up appointments.
--- NOTE | 2025-09-18 17:55 | ESDS_ITS ---
Planned Discharge Date 09/18/25 DS: Providers Provider Date of admission: 09/13/25 17:50 Primary care physician: Harish Taylor MD Admitting Provider: Kathy Whaley MD Attending Provider on Admission: Xu Ramirez MD Consults: 09/13/25 14:43 Referral - Control Room Tender Stat Service Needed for Transfer: Orthopedics Addl Comments:: Left hip fracture 09/13/25 17:23 Consult to Orthopedic Stat Comment: Consulting Provider: Benjie Pérez 09/13/25 17:53 Consult to Cardiology Routine Comment: cardiac clearance for ortho procedure Consulting Provider: Samuel Gongora 09/16/25 08:00 Referral Physical Therapy Routine Comment: Physician Instructions: 09/16/25 15:26 PT [Referral Physical Therapy] Routine Comment: Physician Instructions: Attending Provider on DC: Tobias Stone DO Discharging Provider: Tobias Stone DO DS: Diagnosis Problem List Completed Was Problem List Reviewed/Reconciled?: Yes Hospital Course Hospital Course Hospital course: Summary: 85-year-old male with PMH of CAD s/p stent placement some 20 years ago on rosuvastatin, dementia on memantine, rivastigmine and Seroquel who presented to ED on 09/13/2025 after he had a witnessed fall. Patient was admitted for orthopedic consultation and surgery. Patient received cardiac clearance and received orthopedic surgery on 09/16/2025 for his left hip fracture. Due to limited communication with the patient for his underlying dementia, discussed further plan with his family and discharged to SNF. ED course: In the ED, patient presented slightly hypertensive 131/74, heart rate of 76, respiratory rate 18, afebrile satting 96 on room air. Laboratory findings were largely unremarkable, Knee x-ray was negative for any acute fracture, Femur XR (09/13/2025) showed Acute fracture left hip, low femoral neck and partly intertrochanteric. Angulation at the fracture site. Shaft of the femur are intact Hip/Pelvis XR (09/13/2025) showed Acute left hip fracture left femoral neck and partly intertrochanteric. Right hip bones of the pelvis intact. Pelvis CT ( 09/13/2025) show an acute left hip fracture, left femoral neck partly intertrochanteric, colonic diverticulosis, prostatomegaly, fat-containing left inguinal hernia, severe osteopenia. Chest x-ray did show early pneumonia in the left base and EKG was normal sinus rhythm with occasional PVCs. Hospital Course: Upon admission to the hospital, orthopedic surgeon has been consulted and surgery for left hip fracture has been scheduled. Patient had left base pneumonia and was given IV ceftriaxone 1g daily and IV azithromycin 500mg for 3 days. Given his home medication for dementia; memantine 10 mg p.o. twice daily, quetiapine 25 mg p.o. twice daily and rivastigmine patch. ECHO showed normal- sized chambers, normal-sized LV with EF 51%, diastolic dysfunction noted with mild TR. Patient had low cardiac risk and was cleared for orthopedic procedure. On 09/16/2025, patient received operative treatment with a cephalomedullary nail at intertrochanteric fracture of left hip. Surgery was done without any complications. [place] 5 po q4hr was given as a pain regime. Physical Therapy recommended rehab placement and patient's family agreed for SNF placement. Instructions: You have undergone surgery for a hip fracture and are stable for discharge. It is important to follow these instructions carefully to ensure a smooth recovery and to prevent complications such as deep vein thrombosis (DVT). Medications: * Elquis (Apixaban) 2.5 mg BID: * Take 2.5 mg twice daily for DVT prophylaxis. This medication helps reduce the risk of developing blood clots in your legs. * Take with or without food, but try to take it at the same time each day for consistency. * Important: Do not skip doses. If you miss a dose, take it as soon as you remember, unless it is almost time for the next dose. In that case, skip the missed dose and resume your regular dosing schedule. Follow-Up Care: * Orthopedic Follow-up: It is crucial to schedule a follow-up appointment with your orthopedic surgeon within 7?10 days to assess your healing process and determine if any further interventions are needed. * Physical Therapy: Your doctor may recommend physical therapy to help with your recovery. Follow their advice on when to begin rehabilitation to regain strength and mobility in your hip. * Weight-bearing restrictions: Follow your surgeon?s instructions regarding weight-bearing on your operated leg. You may be required to use crutches or a walker to assist with walking. Signs of Complications (Seek medical attention immediately if you experience any of the following): * Swelling, redness, or warmth in the leg, especially with increased pain * Chest pain or difficulty breathing (signs of a pulmonary embolism) * Sudden severe pain or swelling in the hip or leg * Fever or chills (could indicate infection) * Excessive bruising or bleeding (especially if taking Elquis) For shearing to bilateral buttocks, cover with foam dressings and off load every two hours per Wound PASQUALE Metzger. Emergency: If you experience any of the above complications or any new, concerning symptoms, please seek immediate medical attention or go to the emergency department. #Acute left hip fracture #Elevated fall #Acute hypoxic respiratory failure / #Left base pneumonia #Dementia #Coronary artery disease status post stent placement #Hyperglycemia #Mild normocytic anemia #History of symbrachydactyly #Colonic diverticulosis #Prostatomegaly #Fat-containing left inguinal hernia #Severe osteopenia Assessment and plan discussed with my attending physician Dr. Ramirez and Dr. Jalloh (PGY-3) Dr. Stone (PGY-1) - Internal medicine resident Status at Discharge Overall status at discharge: patient is progressing back to baseline Time Spent with Patient Time attestation: Total time spent providing and/or coordinating discharge services: Time spent: Greater than 30 minutes Exam Vital Signs Temp Pulse Resp BP Pulse Ox O2 Del Method O2 Flow Rate 97.6 F 91 20 117/67 97 Nasal Cannula 3 09/18/25 16:00 09/18/25 16:00 09/18/25 16:00 09/18/25 16:00 09/18/25 16:00 09/18/25 16:00 09/18/25 16:00 FiO2 35 09/17/25 10:37 Narrative Exam General: No acute distress, Oriented x0 (dementia baseline) Eye: Normal conjunctiva, no scleral icterus HENT: Normocephalic, atraumatic, hearing intact to conversation at normal volume, moist oral mucosa Neck: Supple, non-tender, no JVD, no lymphadenopathy Lungs: Non-labored respirations, symmetric chest rise, Clear to auscultate bilaterally, No wheezing, rhonchi, crackles Heart: Peripheral pulses intact bilaterally, Regular Rate and Rhythm. Abdomen: Soft, non-tender, non-distended, no palpable masses Musculoskeletal: No cyanosis or edema, No visible joint swelling, Missing 3 digits on left hand since childbirth. Clear, non-draining, non-erythematous Surgical site on left thigh Skin: Skin is warm, dry, no rashes or lesions. Psychiatric: Cooperative, appropriate mood and affect Neuro: Cranial nerves II-XII grossly intact. Sensations intact to light touch. Discharge Plan Plan Patient Disposition: Xfer Skilled Nsg Fac (SNF) Care Plan Goals: You have undergone surgery for a hip fracture and are stable for discharge. It is important to follow these instructions carefully to ensure a smooth recovery and to prevent complications such as deep vein thrombosis (DVT). Medications: * Elquis (Apixaban) 2.5 mg BID: * Take 2.5 mg twice daily for DVT prophylaxis. This medication helps reduce the risk of developing blood clots in your legs. * Take with or without food, but try to take it at the same time each day for consistency. * Important: Do not skip doses. If you miss a dose, take it as soon as you remember, unless it is almost time for the next dose. In that case, skip the missed dose and resume your regular dosing schedule. Follow-Up Care: * Orthopedic Follow-up: It is crucial to schedule a follow-up appointment with your orthopedic surgeon within 7?10 days to assess your healing process and determine if any further interventions are needed. * Physical Therapy: Your doctor may recommend physical therapy to help with your recovery. Follow their advice on when to begin rehabilitation to regain strength and mobility in your hip. * Weight-bearing restrictions: Follow your surgeon?s instructions regarding weight-bearing on your operated leg. You may be required to use crutches or a walker to assist with walking. Signs of Complications (Seek medical attention immediately if you experience any of the following): * Swelling, redness, or warmth in the leg, especially with increased pain * Chest pain or difficulty breathing (signs of a pulmonary embolism) * Sudden severe pain or swelling in the hip or leg * Fever or chills (could indicate infection) * Excessive bruising or bleeding (especially if taking Elquis) For shearing to bilateral buttocks, cover with foam dressings and off load every two hours per Wound PASQUALE Metzger. Emergency: If you experience any of the above complications or any new, concerning symptoms, please seek immediate medical attention or go to the emergency department. Prescriptions/Referrals Prescriptions/Med Rec: New Eliquis 2.5 mg Tablet 2.5 mg PO BID 34 Days Qty: 68 0RF sennosides [Senna Laxative] 8.6 mg tablet 8.6 mg PO QDAY 14 Days Qty: 14 0RF Continued memantine 10 mg Tablet 10 mg PO BID quetiapine 25 mg tablet 25 mg PO BID Patient Comments: TOME 1/2 - 1 TABLETA POR V A ORAL CADA NOCHE CUANDO SEA NECESARIO Rx Instructions: Take 1 tablet by mouth at 3pm and one at night as needed rosuvastatin 10 mg tablet 10 mg PO DAILY Patient Comments: TOME CAREN TABLETA TODOS LOS D FOR 90 DAYS rivastigmine [Exelon Patch] 9.5 mg/24 hour patch 24 hour See Rx Instructions topical .COMPLEX Rx Instructions: topically; Referrals: Harish Taylor MD [Primary Care Provider, Internal Medicine] Patient/Caregiver Discharge Instructions Discharge Activity: as per physical therapy Print Language: Divehi Stand Alone Forms: Tuyet Award Info., Patient Portal Info Letter Discharge Order Discharge Orders: Discharge (Routine); Ordered 09/18/25 Ordered By: Vonda Jalloh Quality Discharge Quality Measures VTE prophylaxis Attestestation MD Attestation I have examined the patient, reviewed labs and imaging findings, discussed the case with the resident(s), and reviewed entered orders. I agree with the plan of care as outlined in this note. Time Spent: [address] James MD
== END 2025-09-18 18:50 | disposition skilled nursing facility (03) | DRG 480 ==
LOC: SERX 17:32 → SERHOLD 18:29 → S2NX 22:27
PROVIDERS: Orthopaedic Surgery Adult Reconstructive Orthopaedic Surgery; Student in an Organized Health Care Education/Training Program; Admitting Provider Internal Medicine; Emergency Provider Family Medicine; PCP Internal Medicine; Visit Provider Student in an Organized Health Care Education/Training Program
PROC: 0QS736Z Reposition Left Upper Femur with Intramedullary Internal Fixation Device, Percutaneous Approach (ICD-10-PCS; CPT 27245; principal; 2025-09-16 17:00)
DX: S72.142A Displaced intertrochanteric fracture of left femur, initial encounter for closed fracture (principal); J15.9 Unspecified bacterial pneumonia; J96.01 Acute respiratory failure with hypoxia; F02.80 Dementia in other diseases classified elsewhere, unspecified severity, without behavioral disturbance, psychotic disturbance, mood disturbance, and anxiety; E78.00 Pure hypercholesterolemia, unspecified; I25.10 Atherosclerotic heart disease of native coronary artery without angina pectoris; R73.9 Hyperglycemia, unspecified; G30.9 Alzheimer's disease, unspecified; D64.89 Other specified anemias; F02.C0 Dementia in other diseases classified elsewhere, severe, without behavioral disturbance, psychotic disturbance, mood disturbance, and anxiety; K57.30 Diverticulosis of large intestine without perforation or abscess without bleeding; J31.0 Chronic rhinitis; N40.0 Benign prostatic hyperplasia without lower urinary tract symptoms; I49.3 Ventricular premature depolarization; M85.80 Other specified disorders of bone density and structure, unspecified site; I35.8 Other nonrheumatic aortic valve disorders; K40.90 Unilateral inguinal hernia, without obstruction or gangrene, not specified as recurrent; I25.2 Old myocardial infarction; Z95.5 Presence of coronary angioplasty implant and graft; W10.9XXA Fall (on) (from) unspecified stairs and steps, initial encounter; Z78.1 Physical restraint status; Z79.899 Other long term (current) drug therapy
CPT/HCPCS: 36415; 36600; 71045; 72192; 73502; 73552; 73562; 76000; 80053; 81001; 82728; 82803; 83540; 83550; 83735; 83880; 84100; 84484; 85025; 85610; 85730; 87811; 93005; 93306; 94640; 94664; 94762; 96365; 96375; 97163; 99284; A9270; J0456; J0690; J0696; J1100; J1815; J1885; J2270; J2371; J2405; J2704; J2795; J3010; J3490; J7030; J7050; J7120; J7999

== ENCOUNTER 2025-10-11 08:51 | Outpatient (AMB) | payer OTHER, MEDICAID, SELFPAY ==
[2025-10-11 09:21] VITALS: BP 94/51; PULSE 101; RESP 18; TEMP 36.8; O2SAT 95; BMI 24.0
--- NOTE | 2025-10-11 09:21 | ORTHONT_ITS ---
Vital signs 10/11/25 09:21 Height 1.7 m Height Method Measured Weight 69.4 kg Weight Measurement Method Standing Scale BMI 24.0 BP 94/51 L Blood Pressure Source Automatic Cuff Blood Pressure Location Left Upper Arm Position Sitting Respiration 18 Pulse 101 H Pulse Source Monitor Temp 98.2 F Temp Source Temporal Artery Scan Pulse Oximetry (%) 95 Oxygen Delivery Method Room Air Med/Allergies Allergies & Medications Allergies No Known Allergies Allergy (Verified 10/11/25 09:22) Medication Reconciliation memantine 10 mg tablet 10 mg PO BID 03/17/23 [History Confirmed 10/11/25] quetiapine 25 mg tablet 25 mg PO BID 03/23/25 [History Confirmed 10/11/25] rivastigmine 9.5 mg/24 hour transdermal patch (Exelon Patch) See Rx Instructions topical .COMPLEX 03/23/25 [History Confirmed 10/11/25] rosuvastatin 10 mg tablet 10 mg PO DAILY 03/23/25 [History Confirmed 10/11/25] apixaban 2.5 mg tablet (Eliquis) 2.5 mg PO BID 34 days #68 tabs 09/18/25 [Rx Confirmed 10/11/25] Exam Exam Patient is in no acute distress and is cooperative with the examination today. Patient has a normal mood and affect. Breathing is nonlabored. In no respiratory distress. Left hip incisions clean dry intact Assessment and Plan Problem List (1) Fracture of left hip: Status: Acute Plan: Patient is doing well status post cephalomedullary nail. He has significant dementia. He is doing well status post cephalomedullary nail. He should continue with therapy. Will see him in 4 weeks with new x-rays his last x-rays from 1 week ago look great Advanced Care Planning Discussion Advance care planning discussed with:: patient Office Procedures GNS Level of Care Nursing/Assessment Patient Status: Established Patient Nursing Assessment/Reassesment: Medication Reconciliation, Update PMH in EMR and Vital Signs Coordination of Care: Complex Care and Chronic Disease 1-5, Education Complex Pt/Fam, Consent,records obtained, informed consent, Results/Orders obtained and Staff clarify orders Special Needs: Language special needs Established Patient Charge Established Patient Point Assignment: 95 Established Patient Point Charge: EP Level 3 (80-115) [place] Intake Visit Data Collection New Patient or Established: Established Patient (seen at [facility] within 3 years) Reason for Visit:: 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 PCP or OBGYN visit in last 3 months: Yes Hx Now: No Do You Feel Safe at Home: Yes Authorities Contacted: N/A Questionairres Past Medical History Past Medical History Have you ever been diagnosed with any of the following: Neurological Problems Cerebrovascular Accident (CVA): No Transient Ischemic Attacks (TIA): No Dementia: Yes Alzheimer's Disease: Yes Parkinson's Disease: No Brain Tumor: No Meningitis: No Seizures: No Epilepsy: No Multiple Sclerosis: No Cerebral Palsy: No Amyotrophic Lateral Sclerosis (ALS/Jessica Gehrig's): No Guillain-Ellijay Syndrome: No Spina Bifida: No Paralysis: No Peripheral Neuropathy: No Dorman's Palsy: No Subdural Hematoma: No Migraine: No Head Trauma: No Spinal Cord Injury: No Traumatic Brain Injury: No Cardiology Problems Myocardial Infarction: No Cardiac Arrhythmia: No Atrial Fibrillation: No Angina: No Heart Murmur: No 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 Peripheral Vascular Disease: No Hypercholesterolemia: Yes Aneurysm: No Congestive Heart Failure: No Congenital Heart Disease: No Valvular Heart Disease: No Rheumatic Fever: No Cardiomyopathy: No Edema: No Pericarditis: No Cellulitis: No Deep Vein Thrombosis: No Hypertension: Yes Hypotension: No Varicose Veins: No Respiratory Problems Chronic Obstructive Pulmonary Disease (COPD): No Asthma: No Bronchitis: No Emphysema: No Pneumonia: No Pulmonary Fibrosis: No Tuberculosis: No Pulmonary Embolism: No Pulmonary Edema: No Sleep Apnea: No Stomache/Intestinal Problems Hepatitis: No Cirrhosis: No Pancreatitis: No Celiac Disease: No Gall Bladder Disease: No Gastrointestinal Bleed: Yes Esophageal Varices: No Glaser's Esophagus: No Colitis: No Ulcerative Colitis: No Diverticulitis: No Diverticulosis: No Ulcer: Yes Colorectal Cancer: No Irritable Bowel: No Crohn's Disease: No Obstructive Bowel: No Hiatal Hernia: No Hemorrhoids: No Gastroesophageal Reflux Disease: Yes Obesity: No Genital/Urinary Problems Renal Disease: No Kidney Stones: No Polycystic Kidney Disease: No Neurogenic Bladder: No Inguinal Hernia: No Dialysis: No Prostate Cancer: No Benign Prostatic Hyperplasia: Yes Reproductive Problems Breast Cancer: No Genital Herpes: No Gonorrhea: No Syphilis: No Testicular Cancer: No Musculoskeletal Problems Muscular Dystrophy: No Myasthenia Gravis: No Marfan's Syndrome: No Bone Cancer: No Arthritis: Yes Rheumatoid Arthritis: No Osteoporosis: No Degenerative Disk Disease: No Gout: No Scoliosis: No Carpal Tunnel Syndrome: No Fibromyalgia: No Fractures: No Degenerative Joint Disease: No Osteomyelitis: No Poliovirus: No Head,Eye,Nose,Throat Problems Cataracts: Yes Glaucoma: No Blind: No Retinal Detachment: No Macular Degeneration: No Chronic Ear Infections: No Deafness: No Eye Prosthesis: No Endocrine Problems Diabetes Mellitus Type 1: No Diabetes Mellitus Type 2: No Hypoglycemia: No Peralta's Syndrome: No Hudson's Disease: No Hyperthyroidism: No Hypothyroidism: No Parathyroid Disease: No Pituitary Disease: No Systemic Lupus Erythematosus: No Syndrome of Inappropriate Antidiuretic Hormone: No Adrenal Disease: No Graves' Disease: No Blood Problems Anemia: No Leukemia: No Hemophilia: No Thalassemia: No Sickle Cell Disease: No Clotting Problems: No Psychologic Problems Schizophrenia: No Recreational Drug Use: No Bipolar Disorder: No Depression: No Anxiety: No Behavior Problems: No Self-Mutilation: No Attention Deficit Disorder: No Attention Deficit Hyperactivity Disorder: No Depression: No Post Traumatic Stress Disorder: No Eating Disorder: No Other Problems Hospitalization: Yes Down Syndrome: No Autism: No Developmental Delay: No Shingles: No Falls: No Blood Transfusions: Yes Blood Transfusion Reaction: No Anesthesia Reactions: No Organ Transplant: No Chemotherapy: No Radiation Therapy: No Hyperbaric Therapy: No MRSA: No VRSA: No Vancomycin-Resistant Enterococci: No Human Immunodeficiency Virus (HIV): No Chicken Pox: No Measles: No Mumps: No Rubella (Maltese Measles): No Pertussis: No Clostridium Difficile: No Cancer: No Lung Cancer: No Surgical History Carotid Endarterectomy: No Coronary Artery Bypass Graft: No Valve Replacement: No Pacemaker: No Thyroidectomy: No Subjective Visit Visit for: follow up visit and hip Immunization / Flu Flu Vaccine in the Last 12 Months: Yes Flu Vaccine Exclusion Criteria: Already Received History of Present Illness Chief complaint: 2 WEEK GWEN Patient is doing well postop from a cephalomedullary nail Personal History Red flag PMH: none BMI Counceling provided: No Pain Pain level (0-10): 0 Associated signs & symptoms: none Ambulatory data Ambulatory device: other (specify) (WHEELCHAIR) Treatments Improvement with previous injections: No Improvement with PT: No Improvement with NSAIDS: no Review of Systems Review of Systems: All systems negative unless otherwise noted in HPI.
== END 2025-10-11 09:24 | disposition home or self-care (01) ==
LOC: HODSRG 08:51
PROVIDERS: PCP Internal Medicine; Referring Provider Internal Medicine; Supervising Provider Orthopaedic Surgery Adult Reconstructive Orthopaedic Surgery; Visit Provider Orthopaedic Surgery Adult Reconstructive Orthopaedic Surgery
DX: Z47.89 Encounter for other orthopedic aftercare (principal); F03.90 Unspecified dementia, unspecified severity, without behavioral disturbance, psychotic disturbance, mood disturbance, and anxiety
CPT/HCPCS: 99213; G0463

== ENCOUNTER 2025-11-12 13:05 | Outpatient (AMB) | payer OTHER, MEDICAID, SELFPAY ==
--- NOTE | 2025-11-12 13:28 | ORTHONT_ITS ---
Vital signs 11/12/25 13:38 Height 1.7 m Height Method Stated Weight 96.4 kg Weight Measurement Method Estimated by Patient BMI 33.3 BP 113/63 Blood Pressure Source Automatic Cuff Blood Pressure Location Left Upper Arm Position Sitting Respiration 19 Pulse 92 Pulse Source Monitor Temp 97.9 F Temp Source Temporal Artery Scan Pulse Oximetry (%) 97 Oxygen Delivery Method Room Air Med/Allergies Allergies & Medications Allergies No Known Allergies Allergy (Verified 11/12/25 13:39) Medication Reconciliation memantine 10 mg tablet 10 mg PO BID 03/17/23 [History Confirmed 11/12/25] quetiapine 25 mg tablet 25 mg PO BID 03/23/25 [History Confirmed 11/12/25] rivastigmine 9.5 mg/24 hour transdermal patch (Exelon Patch) See Rx Instructions topical .COMPLEX 03/23/25 [History Confirmed 11/12/25] rosuvastatin 10 mg tablet 10 mg PO DAILY 03/23/25 [History Confirmed 11/12/25] Exam Exam Patient is in no acute distress and is cooperative with the examination today. Patient has a normal mood and affect. Breathing is nonlabored. In no respiratory distress. Left hip incisions clean dry intact Assessment and Plan Problem List (1) Fracture of left hip: Status: Acute Plan: Patient is doing well status post cephalomedullary nail. He has significant dementia. We need new x-rays as he does not have recent ones as he just came out of rehab We will see him back for x-ray results Advanced Care Planning Discussion Advance care planning discussed with:: patient Questionairres Past Medical History Past Medical History Have you ever been diagnosed with any of the following: Neurological Problems Cerebrovascular Accident (CVA): No Transient Ischemic Attacks (TIA): No Dementia: Yes Alzheimer's Disease: Yes Parkinson's Disease: No Brain Tumor: No Meningitis: No Seizures: No Epilepsy: No Multiple Sclerosis: No Cerebral Palsy: No Amyotrophic Lateral Sclerosis (ALS/Jessica Gehrig's): No Guillain-[place] Syndrome: No Spina Bifida: No Paralysis: No Peripheral Neuropathy: No Dorman's Palsy: No Subdural Hematoma: No Migraine: No Head Trauma: No Spinal Cord Injury: No Traumatic Brain Injury: No Cardiology Problems Myocardial Infarction: No Cardiac Arrhythmia: No Atrial Fibrillation: No Angina: No Heart Murmur: No 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 Peripheral Vascular Disease: No Hypercholesterolemia: Yes Aneurysm: No Congestive Heart Failure: No Congenital Heart Disease: No Valvular Heart Disease: No Rheumatic Fever: No Cardiomyopathy: No Edema: No Pericarditis: No Cellulitis: No Deep Vein Thrombosis: No Hypertension: Yes Hypotension: No Varicose Veins: No Respiratory Problems Chronic Obstructive Pulmonary Disease (COPD): No Asthma: No Bronchitis: No Emphysema: No Pneumonia: No Pulmonary Fibrosis: No Tuberculosis: No Pulmonary Embolism: No Pulmonary Edema: No Sleep Apnea: No Stomache/Intestinal Problems Hepatitis: No Cirrhosis: No Pancreatitis: No Celiac Disease: No Gall Bladder Disease: No Gastrointestinal Bleed: Yes Esophageal Varices: No Glaser's Esophagus: No Colitis: No Ulcerative Colitis: No Diverticulitis: No Diverticulosis: No Ulcer: Yes Colorectal Cancer: No Irritable Bowel: No Crohn's Disease: No Obstructive Bowel: No Hiatal Hernia: No Hemorrhoids: No Gastroesophageal Reflux Disease: Yes Obesity: No Genital/Urinary Problems Renal Disease: No Kidney Stones: No Polycystic Kidney Disease: No Neurogenic Bladder: No Inguinal Hernia: No Dialysis: No Prostate Cancer: No Benign Prostatic Hyperplasia: Yes Reproductive Problems Breast Cancer: No Genital Herpes: No Gonorrhea: No Syphilis: No Testicular Cancer: No Musculoskeletal Problems Muscular Dystrophy: No Myasthenia Gravis: No Marfan's Syndrome: No Bone Cancer: No Arthritis: Yes Rheumatoid Arthritis: No Osteoporosis: No Degenerative Disk Disease: No Gout: No Scoliosis: No Carpal Tunnel Syndrome: No Fibromyalgia: No Fractures: No Degenerative Joint Disease: No Osteomyelitis: No Poliovirus: No Head,Eye,Nose,Throat Problems Cataracts: Yes Glaucoma: No Blind: No Retinal Detachment: No Macular Degeneration: No Chronic Ear Infections: No Deafness: No Eye Prosthesis: No Endocrine Problems Diabetes Mellitus Type 1: No Diabetes Mellitus Type 2: No Hypoglycemia: No Radha's Syndrome: No Kyrie's Disease: No Hyperthyroidism: No Hypothyroidism: No Parathyroid Disease: No Pituitary Disease: No Systemic Lupus Erythematosus: No Syndrome of Inappropriate Antidiuretic Hormone: No Adrenal Disease: No Graves' Disease: No Blood Problems Anemia: No Leukemia: No Hemophilia: No Thalassemia: No Sickle Cell Disease: No Clotting Problems: No Psychologic Problems Schizophrenia: No Recreational Drug Use: No Bipolar Disorder: No Depression: No Anxiety: No Behavior Problems: No Self-Mutilation: No Attention Deficit Disorder: No Attention Deficit Hyperactivity Disorder: No Depression: No Post Traumatic Stress Disorder: No Eating Disorder: No Other Problems Hospitalization: Yes Down Syndrome: No Autism: No Developmental Delay: No Shingles: No Falls: No Blood Transfusions: Yes Blood Transfusion Reaction: No Anesthesia Reactions: No Organ Transplant: No Chemotherapy: No Radiation Therapy: No Hyperbaric Therapy: No MRSA: No VRSA: No Vancomycin-Resistant Enterococci: No Human Immunodeficiency Virus (HIV): No Chicken Pox: No Measles: No Mumps: No Rubella (Ind[place]ian Measles): No Pertussis: No Clostridium Difficile: No Cancer: No Lung Cancer: No Surgical History Carotid Endarterectomy: No Coronary Artery Bypass Graft: No Valve Replacement: No Pacemaker: No Thyroidectomy: No Subjective Visit Visit for: follow up visit and hip Immunization / Flu Flu Vaccine in the Last 12 Months: Yes Flu Vaccine Exclusion Criteria: Already Received History of Present Illness Chief complaint: 6 weeks cephalomedullary nail Patient is doing well status post cephalomedullary nail. He is in a wheelchair primarily because of his dementia. He has been working with physical therapy at home Personal History Red flag PMH: none BMI Counceling provided: No Pain Pain level (0-10): 0 Associated signs & symptoms: none Ambulatory data Ambulatory device: other (specify) (WHEELCHAIR) Treatments Improvement with previous injections: No Improvement with PT: No Improvement with NSAIDS: no Review of Systems Review of Systems: All systems negative unless otherwise noted in HPI.
--- NOTE | 2025-11-12 13:28 | XR_ITS ---
Examination: Left hip AP, lateral, AP pelvis 3 views Technique: Hip AP lateral, AP pelvis, 3 views Exam date and time: November 12, 2025, 1352 hours INDICATIONS: Status post hip fracture surgery September 18, 2025 FINDINGS: Severe osteopenia Healed fracture left hip with satisfactory alignment Mild to moderate narrowing hip joints No acute hip or pelvic fracture IMPRESSION: Healed left hip fracture with satisfactory alignment.
[2025-11-12 13:38] VITALS: BP 113/63; PULSE 92; RESP 19; TEMP 36.6; O2SAT 97; BMI 33.3
== END 2025-11-12 13:35 | disposition home or self-care (01) ==
LOC: HODSRG 13:05
PROVIDERS: PCP Internal Medicine; Referring Provider Internal Medicine; Supervising Provider Orthopaedic Surgery Adult Reconstructive Orthopaedic Surgery; Visit Provider Orthopaedic Surgery Adult Reconstructive Orthopaedic Surgery
DX: S72.002D Fracture of unspecified part of neck of left femur, subsequent encounter for closed fracture with routine healing (principal); X58.XXXD Exposure to other specified factors, subsequent encounter; F03.90 Unspecified dementia, unspecified severity, without behavioral disturbance, psychotic disturbance, mood disturbance, and anxiety; Z99.3 Dependence on wheelchair; I10 Essential (primary) hypertension
CPT/HCPCS: 73502; 99213; G0463